=== PATIENT | female | born 1935 | race Caucasian/White ===

== ENCOUNTER 2017-04-05 12:40 | Inpatient (IN) | payer MEDICARE, MEDICAID ==
[~2017-04-05] VITALS: Ht 154.9 cm; Wt 61.2 kg
[2017-04-05] MEDS ORDERED: METO25TA6 PO (13:04)
[2017-04-05] MEDS ORDERED: RIVA20TA PO (13:04)
[2017-04-05] MEDS ORDERED: MULT1CAP PO (13:04)
[2017-04-05] MEDS ORDERED: QUET25TA34 PO (13:04)
[2017-04-05 13:54] LABS: CARBON DIOXIDE 28 mmol/L (21-32); CHLORIDE 99 mmol/L (98-107); CREATININE 0.8 mg/dL (0.6-1.3); GLUCOSE 113 mg/dL (74-106); POTASSIUM 3.9 mmol/L (3.5-5.1); UREA NITROGEN, BLOOD 19 mg/dL (7-18)
[2017-04-05 13:57] LABS: BASOPHILS # (AUTO) 0.1 K/uL (0.0-8.0); BASOPHILS % (AUTO) 1.5 % (0.0-2.0); EOSINOPHILS # (AUTO) 0.4 K/uL (0.0-0.7); EOSINOPHILS % (AUTO) 5.4 % (0.0-7.0); HEMATOCRIT 40.9 % (31.2-41.9); HEMOGLOBIN 13.7 g/dL (10.9-14.3); LYMPHOCYTES # (AUTO) 1.7 K/uL (20.0-40.0); LYMPHOCYTES % (AUTO) 20.4 % (20.5-51.5); MEAN CORPUSCULAR HGB CONC 34 g/dL (32.3-35.6); MEAN CORPUSCULAR VOLUME 86.6 fL (75.5-95.3); MONOCYTES # (AUTO) 0.9 K/uL (2.0-10.0); MONOCYTES % (AUTO) 11.1 % (0.0-11.0); NEUTROPHILS # (AUTO) 5.1 K/uL (1.8-8.9); NEUTROPHILS % (AUTO) 61.6 % (38.5-71.5); PLATELET COUNT (AUTO) 293 K/uL (179-408); RED BLOOD CELL COUNT(AUTO) 4.72 MIL/uL (3.63-4.92); WHITE BLOOD COUNT (AUTO) 8.3 K/uL (3.8-11.8)
[2017-04-05 14:00] LABS: ACETAMINOPHEN < 2.0 ug/mL (10-30); ALANINE AMINOTRANSFERASE 15 U/L (14-59); ALKALINE PHOSPHATASE 68 U/L (50-136); ASPARTATE AMINOTRANSFERASE 25 U/L (15-37); BILIRUBIN,DIRECT 0.1 mg/dL (0.0-0.2); BILIRUBIN,TOTAL 0.4 mg/dL (0.2-1.0); TOTAL PROTEIN, SERUM 7.5 g/dL (6.4-8.2)
[2017-04-05 14:08] LABS: ETHANOL < 3 MG/DL (0-0)
[2017-04-05 14:11] LABS: *BILIRUBIN,URIN NEGATIVE (NEGATIVE); *BLOOD, URINE Trace-intact (NEGATIVE); *CLARITY,URINE CLOUDY (CLEAR); *COLOR,URINE YELLOW (YELLOW); *KETONES,URINE NEGATIVE (NEGATIVE); *PROTEIN,URINE NEGATIVE (NEGATIVE); *UROBILINOGEN,URINE 0.2 E.U./dl (NORMAL); LEUKOCYTE ESTERASE ,URINE 3+ (NEGATIVE); NITRITE, URINE POSITIVE (NEGATIVE); UGLUCOSE NEGATIVE (NEGATIVE)
[2017-04-05 14:23] LABS: BACTERIA,URINE MANY /HPF (NONE SEEN); SQUAMOUS EPITHELIAL CELL,UR FEW /HPF (NONE SEEN); WBC,URINE TNTC /HPF (0-3)
[2017-04-05 14:59] LABS: *AMPHETAMINE, URINE NEGATIVE (NEGATIVE); *BARBITURATE, URINE NEGATIVE (NEGATIVE); *CANNABINOID, URINE NEGATIVE (NEGATIVE); *COCCAINE, URINE NEGATIVE (NEGATIVE); *OPIATE, URINE NEGATIVE (NEGATIVE); *PHENCYCLIDINE SCREEN,URINE NEGATIVE (NEGATIVE)
--- NOTE | 2017-04-05 15:00 | NUR ---
Patient yelling. Confused. Dr Arroyo aware
[2017-04-05] MEDS ORDERED: ALPRAZOLAM 0.25 MG TABLET PO ONE (15:03)
[2017-04-05] MEDS ORDERED: CEFTRIAXONE 1 G in IV DEXTROSE 5% 50 ML IV ONE (15:11)
--- NOTE | 2017-04-05 15:14 | NUR ---
[facility] Waiting for Dr Ochoa to call back
[2017-04-05] MEDS ORDERED: ACETAMINOPHEN 650 MG/20.3 ML LIQUID UDC PO ONE (15:15)
[2017-04-05] MEDS ORDERED: ALPRAZOLAM 0.25 MG TABLET ONE (15:22)
[2017-04-05] MEDS ORDERED: ACETAMINOPHEN 325 MG TABLET PO PRN (15:30)
[2017-04-05] MEDS ORDERED: ONDANSETRON 4 MG/2 ML VIAL IV PRN (15:30)
[2017-04-05] MEDS ORDERED: IV NORMAL SALINE 500 ML IV ONE (15:30)
[2017-04-05] MEDS ORDERED: Z GUARD REMEDY PASTE 57 GM TUBE TOP PRN (15:30)
[2017-04-05] MEDS ORDERED: QUETIAPINE FUMARATE 25 MG TABLET PO SCH (15:30)
[2017-04-05] MEDS ORDERED: MAGNESIUM HYDROXIDE 30 ML LIQUID UDC PO PRN (15:30)
[2017-04-05] MEDS ORDERED: CEFTRIAXONE 1 G VIAL ONE (15:38)
[2017-04-05] MEDS ORDERED: ACETAMINOPHEN ES 500 MG TABLET ONE (15:38)
--- NOTE | 2017-04-05 15:48 | NUR ---
Patient yelling and confused. Dr Arroyo aware. Recieved orders and carried out
--- NOTE | 2017-04-05 15:56 | NUR ---
transfered to 2nd floor via radha
[2017-04-05] MEDS ORDERED: LORAZEPAM 2 MG/1 ML VIAL IV ONE (16:00)
[2017-04-05] MEDS ORDERED: LORAZEPAM 2 MG/1 ML VIAL ONE (16:08)
[2017-04-05 16:20] VITALS: BP 102/65
--- NOTE | 2017-04-05 16:41 | NUR ---
81 year old female admitted to room 215 foe urosepsis ,pt is axo to her self.orient the pt to room and surroundings.v/s are stable.md called for admission orders.
[2017-04-05] MEDS: IV 1/2NS 1000 ML 1,000 ML IV PRN (17:02)
[2017-04-05] MEDS: RIVAROXABAN 10 MG TABLET PO SCH (17:21)
[2017-04-05 19:20] VITALS: BP 108/61
--- NOTE | 2017-04-05 19:50 | NUR ---
PATIENT AWAKE ON BED, PALESTINIAN SPEAKING . PATIENT ALERT TO SELF. NO SOB OR ANY DISCOMFORT. SAFETY MEASURES OBSERVED.
[2017-04-05] MEDS: METOPROLOL TARTRATE 25 MG TABLET PO SCH (21:12)
[2017-04-05] MEDS: QUETIAPINE FUMARATE 25 MG TABLET PO PRN (21:13)
[2017-04-06 00:15] VITALS: BP 112/62
[2017-04-06 04:20] VITALS: BP 111/58
--- NOTE | 2017-04-06 06:00 | NUR ---
PATIENT SLEPT INTERMITTENTLY THROUGH OUT THE NIGHT . NO DISTRESS NOTED. CONTINUING ON IV FLUID AND ATB ORDERED. ALL NEEDS MET. DEPT CLEAN AND DRY. SAFETY MEASURES OBSERVED. CALL LIGHT IN REACH
[2017-04-06] MEDS: IV 1/2NS 1000 ML 1,000 ML IV PRN ×2 (06:49→23:14)
[2017-04-06 07:07] LABS: BASOPHILS # (AUTO) 0.1 K/uL (0.0-8.0); BASOPHILS % (AUTO) 1.4 % (0.0-2.0); EOSINOPHILS # (AUTO) 0.6 K/uL (0.0-0.7); EOSINOPHILS % (AUTO) 9.2 % (0.0-7.0); HEMOGLOBIN 12.1 g/dL (10.9-14.3); LYMPHOCYTES # (AUTO) 2.1 K/uL (20.0-40.0); LYMPHOCYTES % (AUTO) 31.1 % (20.5-51.5); MEAN CORPUSCULAR HEMOGLOBIN 28.7 uug (24.7-32.8); MEAN CORPUSCULAR HGB CONC 33 g/dL (32.3-35.6); MEAN CORPUSCULAR VOLUME 87.2 fL (75.5-95.3); MONOCYTES # (AUTO) 0.9 K/uL (2.0-10.0); MONOCYTES % (AUTO) 13.4 % (0.0-11.0); NEUTROPHILS # (AUTO) 3.1 K/uL (1.8-8.9); NEUTROPHILS % (AUTO) 44.9 % (38.5-71.5); PLATELET COUNT (AUTO) 262 K/uL (179-408); RED BLOOD CELL COUNT(AUTO) 4.22 MIL/uL (3.63-4.92); WHITE BLOOD COUNT (AUTO) 6.8 K/uL (3.8-11.8)
[2017-04-06 07:19] LABS: HEMATOCRIT 36.8 % (31.2-41.9)
[2017-04-06 07:30] LABS: CARBON DIOXIDE 26 mmol/L (21-32); CHLORIDE 100 mmol/L (98-107); CREATININE 0.7 mg/dL (0.6-1.3); GLUCOSE 91 mg/dL (74-106); MAGNESIUM 1.6 mg/dL (1.8-2.4); PHOSPHOROUS 3.1 mg/dL (2.5-4.9); POTASSIUM 3.6 mmol/L (3.5-5.1); UREA NITROGEN, BLOOD 15 mg/dL (7-18)
[2017-04-06] MEDS: METOPROLOL TARTRATE 25 MG TABLET PO SCH ×2 (08:13→21:00)
[2017-04-06] MEDS: MULTIVIT, IRON, MIN NO. 8, FA TABLET PO SCH (08:13)
[2017-04-06] MEDS ORDERED: [UNRECOGNIZED DRUG - REMARK] PO SCH (09:00)
[2017-04-06 11:49] VITALS: BP 115/58
[2017-04-06] MEDS: HYDROCODONE/APAP 5-325MG TABLET PO PRN ×3 (14:54→20:59)
[2017-04-06] MEDS: CEFTRIAXONE 1 G in IV DEXTROSE 5% 50 ML IV SCH (14:57)
[2017-04-06] MEDS: MAGNESIUM SULFATE/D5W 100 ML IV SCH ×2 (14:59→16:24)
[2017-04-06 16:08] VITALS: BP 116/74
[2017-04-06] MEDS: QUETIAPINE FUMARATE 25 MG TABLET PO PRN ×2 (16:50→22:24)
[2017-04-06] MEDS: RIVAROXABAN 10 MG TABLET PO SCH (17:14)
[2017-04-06 19:15] VITALS: BP 109/69
--- NOTE | 2017-04-06 20:00 | NUR ---
PATIENT AWAKE, CONFUSED, RESTLESS,NSR ON MONITOR, BP ON LOW SITE,HELD METOPROLOL.
--- NOTE | 2017-04-06 22:30 | NUR ---
SEROQUEL 12.5 MG PO ADMIN FOR AGITATION,
[2017-04-07 00:07] VITALS: BP 102/56
[2017-04-07] MEDS: LORAZEPAM 2 MG/1 ML VIAL IV PRN ×2 (00:52→17:26)
--- NOTE | 2017-04-07 00:55 | NUR ---
PATIENT VERY AGITATED CONFUSED, HALLUCINATED,HEARING VOICE,ATIVAN 0.5 MG IV ADMIN.SAFETY PRECAUTIONS,BED ALARM ON, CLOSELY MONITOR.
[2017-04-07] MEDS ORDERED: LORAZEPAM 2 MG/1 ML VIAL ONE (00:58)
[2017-04-07 05:00] VITALS: BP 128/71
--- NOTE | 2017-04-07 06:08 | NUR ---
PATIENT SLEEP INTERMITTENTLY AFTER ATIVAN GIVEN,NO ACUTE DISTRESS.
[2017-04-07 07:43] LABS: CARBON DIOXIDE 28 mmol/L (21-32); CHLORIDE 102 mmol/L (98-107); CREATININE 0.6 mg/dL (0.6-1.3); GLUCOSE 94 mg/dL (74-106); MAGNESIUM 1.9 mg/dL (1.8-2.4); POTASSIUM 3.7 mmol/L (3.5-5.1); UREA NITROGEN, BLOOD 11 mg/dL (7-18)
[2017-04-07] MEDS: METOPROLOL TARTRATE 25 MG TABLET PO SCH ×2 (08:22→20:47)
[2017-04-07] MEDS: MULTIVIT, IRON, MIN NO. 8, FA TABLET PO SCH (08:22)
[2017-04-07 11:33] VITALS: BP 116/67
[2017-04-07] MEDS: QUETIAPINE FUMARATE 25 MG TABLET PO PRN ×2 (11:54→22:08)
[2017-04-07] MEDS: CEFTRIAXONE 1 G in IV DEXTROSE 5% 50 ML IV SCH (14:01)
[2017-04-07 15:01] VITALS: BP 126/74
[2017-04-07] MEDS: RIVAROXABAN 10 MG TABLET PO SCH (17:38)
--- NOTE | 2017-04-07 19:30 | NUR ---
Pt in room in no acute distress. Continues to speak in Ethiopian language. Able to follow simple commands. Call light placed within reach. No pain stated. Continue to monitor.
[2017-04-08] MEDS: LORAZEPAM 2 MG/1 ML VIAL IV PRN ×2 (00:22→12:25)
--- NOTE | 2017-04-08 01:00 | NUR ---
Pt asleep and calm due to recent Ativan. No increased agitation or anxious behaviors noted at this time. Continue to monitor. Call light placed within reach.
[2017-04-08] MEDS: IV 1/2NS 1000 ML 1,000 ML IV PRN (05:34)
[2017-04-08] MEDS: MULTIVIT, IRON, MIN NO. 8, FA TABLET PO SCH (09:21)
[2017-04-08] MEDS: METOPROLOL TARTRATE 25 MG TABLET PO SCH ×2 (09:24→20:00)
[2017-04-08] MEDS: HYDROCODONE/APAP 5-325MG TABLET PO PRN ×2 (09:25→20:04)
--- NOTE | 2017-04-08 09:30 | NUR ---
COMPLAINED OF GENERALISED PAIN FACIAL GRIMACING AND RUBBING BOTH LEGS ARMS MEDICATED ORDERED AND WILL OBSERVE.
[2017-04-08] MEDS ORDERED: LEVO500T2 PO (10:13)
[2017-04-08 11:00] VITALS: BP 112/72
--- NOTE | 2017-04-08 11:19 | NUR ---
PATIENT SEEN BY PHYSICAL THERAPY FOR THERAPEUTIC EXERCISES AND SHE GAITED ABOUT 50 FEET WITH MIN-MOD ASSIST WITH FAIR ENDURANCE.D/C PLANNING AWAITING FOR DOG HANDLER BAKERY TECHNICIAN TO OKAY HER FINAL DISPOSITION.
[2017-04-08] MEDS: QUETIAPINE FUMARATE 25 MG TABLET PO PRN ×2 (13:19→19:59)
[2017-04-08 15:30] VITALS: BP 104/62
--- NOTE | 2017-04-08 15:42 | NUR ---
PER THE SHIFT SUPERVISOR FILM PROCESSING STILL TRYING TO FINALISE WHICH SNF THAT WILL ACCEPT PATIENT.
[2017-04-08] MEDS: CEFTRIAXONE 1 G in IV DEXTROSE 5% 50 ML IV SCH (15:58)
--- NOTE | 2017-04-08 17:25 | NUR ---
THIS RECORDER SPOKE WITH KATRIN TL SON COMFORT CHANG, INFORMED HIM OF HIS MOTHER'S DISCHARGE AND AMBULANCE ARRIVAL TIME OF APPROXIMATELY 2100 THIS EVENING.
--- NOTE | 2017-04-08 18:13 | NUR ---
SEEN BY DR MOSES WITH ORDER TO DISCONTINUE TELEMETRY THE SALES AND OPERATIONS TRAINEE STATED THAT SHE SPOKE WITH PATIENTS SON COMFORT AND HE STATED THAT IT WAS OKAY TO DISCHARGE PATIENT TODAY TO [facility].
[2017-04-08] MEDS: RIVAROXABAN 10 MG TABLET PO SCH (18:18)
[2017-04-08 20:00] VITALS: BP 133/75
--- NOTE | 2017-04-08 21:00 | NUR ---
patient discharged to [facility] via ambulance, report given to Ashu TORRES. patient took all belongings.hep lock d/c.
== END 2017-04-08 21:23 | DRG 689 ==
LOC: ER 12:40 → TELE 15:45 → MED 04-08 18:03
PROVIDERS: ADMIT Internal Medicine; ATTEND Internal Medicine
DX: N39.0 Urinary tract infection, site not specified (principal); G92 Toxic encephalopathy; N17.0 Acute kidney failure with tubular necrosis; E43 Unspecified severe protein-calorie malnutrition; G30.9 Alzheimer's disease, unspecified; I48.0 Paroxysmal atrial fibrillation; E88.09 Other disorders of plasma-protein metabolism, not elsewhere classified; F02.80 Dementia in other diseases classified elsewhere, unspecified severity, without behavioral disturbance, psychotic disturbance, mood disturbance, and anxiety; E78.5 Hyperlipidemia, unspecified; F29 Unspecified psychosis not due to a substance or known physiological condition; F32.9 Major depressive disorder, single episode, unspecified; F41.9 Anxiety disorder, unspecified; M62.50 Muscle wasting and atrophy, not elsewhere classified, unspecified site; Z68.25 Body mass index [BMI] 25.0-25.9, adult
CPT/HCPCS: 36415; 71010; 80307; 83735; 84100; 85025; 93005; A4663; C1758; G0480; G0480-TC; J0696; J2060; J3475; J3490; J7030; J7060

== ENCOUNTER 2017-04-26 11:18 | Inpatient (IN) | payer MEDICARE, MEDICAID ==
[~2017-04-26] VITALS: Ht 160 cm; Wt 63.5 kg
[~2017-04-26 11:18] MED LIST: LEVO500T2 PO; METO25TA6 PO; MULT1CAP PO; QUET25TA34 PO; RIVA20TA PO
--- NOTE | 2017-04-26 11:22 | NUR ---
Received patient awake, confuse, respiration:easy, afebrile, with occasional nonproductive cough heard. Patient also repeatedly says "Mama, mama, mama, mama." [place], skin warm and dry.
[2017-04-26] MEDS ORDERED: PROT946L PO (11:27)
[2017-04-26] MEDS ORDERED: ROBITUSSIN DM PO (11:27)
--- NOTE | 2017-04-26 11:30 | NUR ---
Brynn-anal care done, pt had one big BM of brown stool, no pressure sores seen, comfort and safety measures maintained.
[2017-04-26] MEDS ORDERED: PIPERACILLIN SODIUM/TAZOBACTAM 3.375 G in IV DEXTROSE 5% 50 ML IV ONE (11:45)
[2017-04-26] MEDS ORDERED: LORAZEPAM 2 MG/1 ML VIAL IV ONE (11:45)
[2017-04-26] MEDS ORDERED: IV NORMAL SALINE 1000 ML BAG IV ONE (11:45)
[2017-04-26] MEDS ORDERED: LEVOFLOXACIN 750MG/D5W 150 ML IV ONE ×2 (11:45→12:18)
[2017-04-26] MEDS ORDERED: diphenhydrAMINE 50 MG/1 ML VIAL IV ONE (11:45)
[2017-04-26 12:07] LABS: BASOPHILS # (AUTO) 0.1 K/uL (0.0-8.0); BASOPHILS % (AUTO) 0.4 % (0.0-2.0); EOSINOPHILS # (AUTO) 0.1 K/uL (0.0-0.7); EOSINOPHILS % (AUTO) 0.7 % (0.0-7.0); HEMOGLOBIN 13.1 g/dL (10.9-14.3); LYMPHOCYTES % (AUTO) 22.4 % (20.5-51.5); MEAN CORPUSCULAR HEMOGLOBIN 28.3 uug (24.7-32.8); MEAN CORPUSCULAR HGB CONC 34 g/dL (32.3-35.6); MEAN CORPUSCULAR VOLUME 84.4 fL (75.5-95.3); MONOCYTES # (AUTO) 1.6 K/uL (2.0-10.0); MONOCYTES % (AUTO) 9.1 % (0.0-11.0); NEUTROPHILS % (AUTO) 67.4 % (38.5-71.5); PLATELET COUNT (AUTO) 330 K/uL (179-408); RED BLOOD CELL COUNT(AUTO) 4.62 MIL/uL (3.63-4.92); WHITE BLOOD COUNT (AUTO) 17.8 K/uL (3.8-11.8)
[2017-04-26 12:10] LABS: *BILIRUBIN,URIN NEGATIVE (NEGATIVE); *BLOOD, URINE NEGATIVE (NEGATIVE); *CLARITY,URINE CLEAR (CLEAR); *COLOR,URINE YELLOW (YELLOW); *KETONES,URINE NEGATIVE (NEGATIVE); *PROTEIN,URINE NEGATIVE (NEGATIVE); *UROBILINOGEN,URINE 0.2 E.U./dl (NORMAL); LEUKOCYTE ESTERASE ,URINE NEGATIVE (NEGATIVE); NITRITE, URINE NEGATIVE (NEGATIVE); UGLUCOSE NEGATIVE (NEGATIVE)
[2017-04-26 12:12] LABS: CARBON DIOXIDE 22 mmol/L (21-32); CHLORIDE 97 mmol/L (98-107); CREATININE 0.9 mg/dL (0.6-1.3); GLUCOSE 115 mg/dL (74-106); POTASSIUM 3.8 mmol/L (3.5-5.1); UREA NITROGEN, BLOOD 20 mg/dL (7-18)
[2017-04-26 12:16] LABS: BACTERIA,URINE NONE SEEN /HPF (NONE SEEN); MUCUS,URINE FEW /LPF (0-FEW); RBC,URINE 0-3 /HPF (0-3); SQUAMOUS EPITHELIAL CELL,UR FEW /HPF (NONE SEEN); WBC,URINE 0-3 /HPF (0-3)
[2017-04-26 12:17] LABS: ALANINE AMINOTRANSFERASE 15 U/L (14-59); ALKALINE PHOSPHATASE 77 U/L (50-136); ASPARTATE AMINOTRANSFERASE 19 U/L (15-37); BILIRUBIN,DIRECT 0.1 mg/dL (0.0-0.2); BILIRUBIN,TOTAL 0.4 mg/dL (0.2-1.0)
[2017-04-26] MEDS ORDERED: LORAZEPAM 2 MG/1 ML VIAL ONE (12:17)
[2017-04-26] MEDS ORDERED: diphenhydrAMINE 50 MG/1 ML VIAL ONE (12:18)
[2017-04-26 12:26] LABS: BAND % (MANUAL) 3 % (0-10); LYMPHOCYTES % (MANUAL) 23 % (20-40); METAMYELOCYTES % 1 % (0-1); MONOCYTES % (MANUAL) 9 % (2-10); NEUTROPHILS % (MANUAL) 64 % (42-75)
--- NOTE | 2017-04-26 12:40 | NUR ---
Patient is resting comfortably on gurney, occasional random screams heard from the patient while her eyes are closed, respiration:easy.
[2017-04-26] MEDS ORDERED: PIPERACILLIN/TAZOBACTAM/D5W 50 ML IV ONE (12:51)
--- NOTE | 2017-04-26 13:31 | NUR ---
Still waiting for an available telemetry nurse to accept patient at this time, no change in condition seen
--- NOTE | 2017-04-26 14:01 | NUR ---
"OK to bring the patient now. " per 2nd floor nurse
[2017-04-26 14:51] VITALS: BP 109/62
[2017-04-26 19:00] VITALS: BP 111/65
[2017-04-26] MEDS ORDERED: MAGNESIUM HYDROXIDE 30 ML LIQUID UDC PO PRN (19:30)
[2017-04-26] MEDS ORDERED: ONDANSETRON 4 MG/2 ML VIAL IV PRN (19:30)
[2017-04-26] MEDS ORDERED: ALBUTEROL SULFATE 2.5 MG/3 ML NEBU NEB PRN (19:30)
[2017-04-26] MEDS ORDERED: MORPHINE SULFATE 2 MG/1 ML DISP.SYRIN IV PRN (19:30)
--- NOTE | 2017-04-26 19:30 | NUR ---
RECEIVED PATIENT IN BED AWAKE, VERBALLY RESPONSIVE, NO CHEST PAIN NO SOB NOTED, RHYTHM SINUS RHYTHM AT THIS TIME, SPEAK SUDANESE BUT ABLE TO UNDERSTAND GERMAN. COMPLAIN GEN DISCOMFORT, WILL GIVE PAIN MEDS ORDERED. CONT TO MONITOR.
--- NOTE | 2017-04-26 19:50 | NUR ---
CLINICAL PHARMACY NOTE:VANCOMYCIN DOSING Request for vancomycin dosing on 81 y/o female 5'3" 140lbs for pneumonia Temp 98.6 BUN 20 Scr 0.9 WBC 17.8 Bands 3 also on Zosyn start vancomycin 1gm ivpb q27 hours estimated trough 15. Trough level will be ordered prior to 4th dose. Will continue to monitor
[2017-04-26] MEDS: QUETIAPINE FUMARATE 25 MG TABLET PO PRN (19:56)
[2017-04-26] MEDS ORDERED: DOCUSATE SODIUM 250 MG CAPSULE PO SCH (21:00)
[2017-04-26] MEDS: DOCUSATE SODIUM 100 MG CAPSULE PO SCH (21:00)
[2017-04-26] MEDS: VANCOMYCIN IV 1 G in PREMIXED 0 EACH IV SCH (21:04)
[2017-04-26] MEDS: ACETAMINOPHEN 325 MG TABLET PO PRN (21:08)
[2017-04-26] MEDS: PIPERACILLIN/TAZOBACTAM/D5W 3.375 G in PREMIXED 1 EACH IV SCH (23:10)
[2017-04-27] VITALS: BP 104/58
[2017-04-27 04:00] VITALS: BP 122/70
[2017-04-27] MEDS: PIPERACILLIN/TAZOBACTAM/D5W 3.375 G in PREMIXED 1 EACH IV SCH ×3 (05:45→21:14)
[2017-04-27] MEDS: PANTOPRAZOLE SODIUM 40 MG TABLET.DR PO SCH (05:55)
[2017-04-27 06:38] LABS: BASOPHILS % (AUTO) 0.4 % (0.0-2.0); EOSINOPHILS # (AUTO) 0.1 K/uL (0.0-0.7); EOSINOPHILS % (AUTO) 1.6 % (0.0-7.0); HEMATOCRIT 34.8 % (31.2-41.9); HEMOGLOBIN 11.6 g/dL (10.9-14.3); LYMPHOCYTES # (AUTO) 1.7 K/uL (20.0-40.0); LYMPHOCYTES % (AUTO) 19.7 % (20.5-51.5); MEAN CORPUSCULAR HEMOGLOBIN 28.3 uug (24.7-32.8); MEAN CORPUSCULAR HGB CONC 33 g/dL (32.3-35.6); MEAN CORPUSCULAR VOLUME 85.2 fL (75.5-95.3); MONOCYTES # (AUTO) 1.3 K/uL (2.0-10.0); MONOCYTES % (AUTO) 14.6 % (0.0-11.0); NEUTROPHILS # (AUTO) 5.5 K/uL (1.8-8.9); NEUTROPHILS % (AUTO) 63.7 % (38.5-71.5); PLATELET COUNT (AUTO) 231 K/uL (179-408); RED BLOOD CELL COUNT(AUTO) 4.09 MIL/uL (3.63-4.92); WHITE BLOOD COUNT (AUTO) 8.6 K/uL (3.8-11.8)
[2017-04-27 06:50] LABS: ALANINE AMINOTRANSFERASE 10 U/L (14-59); ALKALINE PHOSPHATASE 61 U/L (50-136); ASPARTATE AMINOTRANSFERASE 20 U/L (15-37); BILIRUBIN,TOTAL 0.4 mg/dL (0.2-1.0); CARBON DIOXIDE 26 mmol/L (21-32); CHLORIDE 101 mmol/L (98-107); CHOLESTEROL 142 mg/dL (<200); CREATININE 0.7 mg/dL (0.6-1.3); GLUCOSE 99 mg/dL (74-106); HDL CHOLESTEROL 46 mg/dL (40-60); MAGNESIUM 1.4 mg/dL (1.8-2.4); PHOSPHOROUS 2.5 mg/dL (2.5-4.9); POTASSIUM 3.3 mmol/L (3.5-5.1); TOTAL PROTEIN, SERUM 5.8 g/dL (6.4-8.2); TRIGLYCERIDES 94 MG/DL (30-150); UREA NITROGEN, BLOOD 14 mg/dL (7-18)
[2017-04-27 07:03] LABS: THYROID STIMULATING HORMONE 4.444 mIU/mL (0.358-3.740)
--- NOTE | 2017-04-27 07:31 | NUR ---
PATIENT SLEPT MOST OF THE NIGHT NO SOB NO CHEST PAIN, SINUS RHYTHM AT THIS TIME, HELD COLACE DUE TO LBM, BM SPECIMEN WAS SENT. NO COMPLAIN OF PAIN AT THIS TIME, KEPT CLEAN AND DRY.
--- NOTE | 2017-04-27 07:45 | NUR ---
PT AWAKE IN BED AND NO ACUTE DISTRESS. BED ALARM ON. IV INTACT AND PATENT. CALL LIGHT IN REACH. WILL CONTINUE TO MONITOR.
[2017-04-27] MEDS ORDERED: Medication Not On Formulary EA (Protein Supplement (Promod) 30 ML) PO SCH (09:00)
[2017-04-27] MEDS: ACETAMINOPHEN 325 MG TABLET PO PRN ×2 (09:18→18:27)
[2017-04-27] MEDS: PROTEIN SUPPLEMENT (PROSTAT) 30 ML LIQUID PO SCH ×3 (09:19→17:19)
[2017-04-27 11:11] VITALS: BP 119/68
[2017-04-27] MEDS ORDERED: POTASSIUM CHLORIDE 20 MEQ TAB.PRT.SR PO ONE (11:15)
[2017-04-27] MEDS: MAGNESIUM SULFATE/D5W 100 ML IV SCH ×3 (11:38→17:23)
--- NOTE | 2017-04-27 14:14 | NUR ---
CLINICAL PHARMACY NOTE:VANCOMYCIN DOSING To continue vancomycin dosing on 81 y/o female 5'3" 140lbs for pneumonia Temp 97.7 BUN 14 Scr 0.7 WBC 8.6 Will continue vancomycin 1gm ivpb q27 hours estimated trough 15. Trough level will be ordered prior to 4th dose. Will continue to monitor
[2017-04-27 15:44] VITALS: BP 134/68
[2017-04-27] MEDS: QUETIAPINE FUMARATE 25 MG TABLET PO PRN (16:28)
[2017-04-27] MEDS: RIVAROXABAN 10 MG TABLET PO SCH (17:21)
[2017-04-27] MEDS: LORAZEPAM 0.5 MG TABLET PO PRN (18:42)
--- NOTE | 2017-04-27 18:51 | NUR ---
PT AWAKE IN BED, CONTINUALLY YELLING OUT WANTS TO BE CHANGE, DIAPER WAS CHECKED AND WAS DRY. CALLED FAMILY MEMBER TO ASSIST IN CALMING THE PATIENT DOWN. PT. MADE COMFORTABLE. CONTINUES TO YELL OUT, ATIVAN GIVEN ORDERED.
[2017-04-27 20:00] VITALS: BP 140/77
[2017-04-27] MEDS: DOCUSATE SODIUM 100 MG CAPSULE PO SCH (21:13)
[2017-04-27] MEDS: VANCOMYCIN IV 1 G in PREMIXED 0 EACH IV SCH (22:24)
[2017-04-28] VITALS: BP 113/68
--- NOTE | 2017-04-28 02:10 | NUR ---
pt with large amount of bloody semi liquid stool.specimen obtained and sent to lab.
[2017-04-28] MEDS: QUETIAPINE FUMARATE 25 MG TABLET PO PRN (02:30)
[2017-04-28 04:00] VITALS: BP 105/61
[2017-04-28] MEDS: PIPERACILLIN/TAZOBACTAM/D5W 3.375 G in PREMIXED 1 EACH IV SCH ×3 (06:24→21:06)
[2017-04-28 07:11] LABS: BASOPHILS % (AUTO) 0.7 % (0.0-2.0); EOSINOPHILS # (AUTO) 0.2 K/uL (0.0-0.7); EOSINOPHILS % (AUTO) 2.5 % (0.0-7.0); HEMATOCRIT 35.4 % (31.2-41.9); HEMOGLOBIN 11.5 g/dL (10.9-14.3); LYMPHOCYTES % (AUTO) 28.8 % (20.5-51.5); MEAN CORPUSCULAR HEMOGLOBIN 27.7 uug (24.7-32.8); MEAN CORPUSCULAR HGB CONC 32 g/dL (32.3-35.6); MEAN CORPUSCULAR VOLUME 85.4 fL (75.5-95.3); MONOCYTES # (AUTO) 1.1 K/uL (2.0-10.0); MONOCYTES % (AUTO) 16.1 % (0.0-11.0); NEUTROPHILS # (AUTO) 3.5 K/uL (1.8-8.9); NEUTROPHILS % (AUTO) 51.9 % (38.5-71.5); PLATELET COUNT (AUTO) 251 K/uL (179-408); RED BLOOD CELL COUNT(AUTO) 4.14 MIL/uL (3.63-4.92); WHITE BLOOD COUNT (AUTO) 6.8 K/uL (3.8-11.8)
[2017-04-28] MEDS: PANTOPRAZOLE SODIUM 40 MG TABLET.DR PO SCH (07:13)
[2017-04-28 07:26] LABS: ALANINE AMINOTRANSFERASE 15 U/L (14-59); ALKALINE PHOSPHATASE 66 U/L (50-136); ASPARTATE AMINOTRANSFERASE 22 U/L (15-37); BILIRUBIN,TOTAL 0.4 mg/dL (0.2-1.0); CARBON DIOXIDE 26 mmol/L (21-32); CHLORIDE 102 mmol/L (98-107); CREATININE 0.7 mg/dL (0.6-1.3); GLUCOSE 95 mg/dL (74-106); MAGNESIUM 1.9 mg/dL (1.8-2.4); PHOSPHOROUS 2.4 mg/dL (2.5-4.9); POTASSIUM 3.4 mmol/L (3.5-5.1); TOTAL PROTEIN, SERUM 5.8 g/dL (6.4-8.2); UREA NITROGEN, BLOOD 13 mg/dL (7-18)
[2017-04-28 08:00] VITALS: BP 96/61
[2017-04-28 08:14] LABS: BAND % (MANUAL) 7 % (0-10); EOSINOPHILS % (MANUAL) 3 % (0-8); LYMPHOCYTES % (MANUAL) 26 % (20-40); METAMYELOCYTES % 1 % (0-1); MONOCYTES % (MANUAL) 14 % (2-10); NEUTROPHILS % (MANUAL) 49 % (42-75)
[2017-04-28] MEDS: PROTEIN SUPPLEMENT (PROSTAT) 30 ML LIQUID PO SCH ×3 (08:26→17:38)
[2017-04-28 08:30] LABS: *OCCULT BLOOD STOOL POSITIVE (NEGATIVE)
[2017-04-28] MEDS: POTASSIUM PHOSPHATE MM 5 MMOL in IV DEXTROSE 5% 100 ML IV SCH ×2 (11:35→15:21)
[2017-04-28 11:42] VITALS: BP 109/69
--- NOTE | 2017-04-28 14:39 | NUR ---
CLINICAL PHARMACY NOTE:VANCOMYCIN DOSING To continue vancomycin dosing on 81 y/o female 5'3" 140lbs for pneumonia Temp 98 BUN 13 Scr 0.7 WBC 6.8 Will continue vancomycin 1gm ivpb q27 hours estimated trough 15. Trough level will be ordered prior to 4th dose, not ordered yet. 3rd dose scheduled for tomorrow early am at 0200. Will continue to monitor
[2017-04-28 16:10] VITALS: BP 118/73
[2017-04-28] MEDS: RIVAROXABAN 10 MG TABLET PO SCH (18:07)
[2017-04-28 19:00] VITALS: BP 107/67
--- NOTE | 2017-04-28 19:00 | NUR ---
Received patient, is awake and alert during initial rounds. No s/s of pain or discomfort noted. Not in distress. Will anticipate needs.
--- NOTE | 2017-04-28 19:06 | NUR ---
PT OBSERVED IN BED, THERE IS A LANGUAGE BARRIER, BUT SON CAME AND TRANSLATED FOR ME, SON STATES THAT MOTHER C/O ABDOMINAL PAIN, SHE REFUSED MEDICATION, AND CT SCAN WAS ORDERED BY MD. PT IS STABLE.
[2017-04-28] MEDS: DOCUSATE SODIUM 100 MG CAPSULE PO SCH (20:50)
[2017-04-28] MEDS: LACTOBACILLUS RHAMNOSUS GG 1 EACH CAPSULE PO SCH (20:50)
[2017-04-29] MEDS: VANCOMYCIN IV 1 G in PREMIXED 0 EACH IV SCH (02:48)
[2017-04-29 04:00] VITALS: BP 107/63
[2017-04-29] MEDS: PIPERACILLIN/TAZOBACTAM/D5W 3.375 G in PREMIXED 1 EACH IV SCH ×2 (05:17→15:05)
[2017-04-29] MEDS: PANTOPRAZOLE SODIUM 40 MG TABLET.DR PO SCH (05:53)
[2017-04-29] MEDS: MORPHINE SULFATE 4 MG/1 ML DISP.SYRIN IV PRN ×2 (06:25→19:51)
--- NOTE | 2017-04-29 06:26 | NUR ---
VS stable. Slept in between care. Medicated once for complaint of facial pain with relief. No further complaint presented after. All needs attended and met. No significant event reported all night. Continue current plan of care.
[2017-04-29 08:00] VITALS: BP 112/62
[2017-04-29] MEDS: LACTOBACILLUS RHAMNOSUS GG 1 EACH CAPSULE PO SCH ×2 (09:00→20:12)
[2017-04-29] MEDS: PROTEIN SUPPLEMENT (PROSTAT) 30 ML LIQUID PO SCH ×3 (10:37→17:00)
[2017-04-29 11:33] VITALS: BP 109/63
[2017-04-29] MEDS ORDERED: BARIUM SULFATE 450 ML ORAL.SUSP MC ONE (13:43)
[2017-04-29] MEDS: LORAZEPAM 0.5 MG TABLET PO PRN (15:40)
[2017-04-29] MEDS: VANCOMYCIN FOR PO/GT/NG USE PO SCH ×2 (15:40→19:09)
--- NOTE | 2017-04-29 15:59 | NUR ---
CLINICAL PHARMACY NOTE:VANCOMYCIN DOSING To continue vancomycin dosing on 81 y/o female 5'3" 140lbs for pneumonia Temp 97.5 BUN 13 Scr 0.7 WBC 6.8 Will continue vancomycin 1gm ivpb q27 hours estimated trough 15. Trough due tomorrow am at 0430, RN to hold if trouhg >20. Will check trough in am and adjust as needed. Will continue to monitor
[2017-04-29 16:13] VITALS: BP 119/68
[2017-04-29] MEDS ORDERED: NORMAL SALINE FLUSH 10 ML DISP.SYRIN ONE (16:54)
[2017-04-29] MEDS ORDERED: IOHEXOL 300MG/ML 100 ML INFUS..BTL ONE (16:54)
[2017-04-29] MEDS ORDERED: IV NORMAL SALINE 250 ML IV ONE (16:55)
[2017-04-29 19:00] VITALS: BP 148/82
[2017-04-29] MEDS: RIVAROXABAN 10 MG TABLET PO SCH (19:10)
[2017-04-29] MEDS: DOCUSATE SODIUM 100 MG CAPSULE PO SCH (20:12)
[2017-04-30] MEDS: VANCOMYCIN FOR PO/GT/NG USE PO SCH ×4 (00:10→17:00)
[2017-04-30] MEDS: QUETIAPINE FUMARATE 25 MG TABLET PO PRN ×3 (02:12→20:28)
[2017-04-30 04:00] VITALS: BP 111/66
[2017-04-30 05:40] LABS: BASOPHILS # (AUTO) 0.1 K/uL (0.0-8.0); BASOPHILS % (AUTO) 0.8 % (0.0-2.0); EOSINOPHILS # (AUTO) 0.3 K/uL (0.0-0.7); EOSINOPHILS % (AUTO) 3.7 % (0.0-7.0); HEMATOCRIT 36.7 % (31.2-41.9); HEMOGLOBIN 11.8 g/dL (10.9-14.3); LYMPHOCYTES # (AUTO) 2.3 K/uL (20.0-40.0); LYMPHOCYTES % (AUTO) 30.3 % (20.5-51.5); MEAN CORPUSCULAR HEMOGLOBIN 27.7 uug (24.7-32.8); MEAN CORPUSCULAR HGB CONC 32 g/dL (32.3-35.6); MEAN CORPUSCULAR VOLUME 85.8 fL (75.5-95.3); MONOCYTES # (AUTO) 1.1 K/uL (2.0-10.0); MONOCYTES % (AUTO) 14.4 % (0.0-11.0); NEUTROPHILS # (AUTO) 3.9 K/uL (1.8-8.9); NEUTROPHILS % (AUTO) 50.8 % (38.5-71.5); PLATELET COUNT (AUTO) 288 K/uL (179-408); RED BLOOD CELL COUNT(AUTO) 4.28 MIL/uL (3.63-4.92); WHITE BLOOD COUNT (AUTO) 7.7 K/uL (3.8-11.8)
[2017-04-30 05:56] LABS: ALANINE AMINOTRANSFERASE 23 U/L (14-59); ALKALINE PHOSPHATASE 108 U/L (50-136); ASPARTATE AMINOTRANSFERASE 28 U/L (15-37); BILIRUBIN,TOTAL 0.2 mg/dL (0.2-1.0); CARBON DIOXIDE 29 mmol/L (21-32); CHLORIDE 102 mmol/L (98-107); CREATININE 0.7 mg/dL (0.6-1.3); GLUCOSE 91 mg/dL (74-106); MAGNESIUM 1.7 mg/dL (1.8-2.4); PHOSPHOROUS 2.2 mg/dL (2.5-4.9); POTASSIUM 3.6 mmol/L (3.5-5.1); TOTAL PROTEIN, SERUM 6.1 g/dL (6.4-8.2); UREA NITROGEN, BLOOD 10 mg/dL (7-18)
[2017-04-30] MEDS: PANTOPRAZOLE SODIUM 40 MG TABLET.DR PO SCH (06:19)
--- NOTE | 2017-04-30 06:34 | NUR ---
PT C/O GENERALIZED PAIN , PAIN MANAGEMENT PROVIDED WITH HELP.WAS GIVEN SEROQUEL FOR AGITATION.SLEPT AFTERWARDS. TURNED AND REPOSITIONED. PERICARE GIVEN. SAFETY RENDERED.
--- NOTE | 2017-04-30 07:35 | NUR ---
DR. NOYOLA CALLED IN REGARDS TO THE CT SCAN RESULTS, DR. ELDER NOTIFIED OF RESULTS.
[2017-04-30] MEDS: LACTOBACILLUS RHAMNOSUS GG 1 EACH CAPSULE PO SCH ×2 (08:18→20:27)
[2017-04-30] MEDS: PROTEIN SUPPLEMENT (PROSTAT) 30 ML LIQUID PO SCH ×3 (08:19→16:28)
[2017-04-30] MEDS: MORPHINE SULFATE 4 MG/1 ML DISP.SYRIN IV PRN (10:51)
--- NOTE | 2017-04-30 10:58 | NUR ---
PT IS SCREAMING, AND HAS FACIAL GRIMACING.WHEN ASKED ABOUT WHETHER SHE HAS PAIN SHE CAN'T SCORE THE PAIN, WHEN I ASK WHERE SHE HAS PAIN SHE STATES "EVERYWHERE". PT IS IRRITABLE, RESTLESS, CRYING, PT GIVEN MORPHINE FOR PAIN. MEDICATION EFFECTIVE.
[2017-04-30 11:41] VITALS: BP 122/72
[2017-04-30] MEDS ORDERED: Z GUARD REMEDY PASTE 57 GM TUBE TOP PRN (13:00)
[2017-04-30] MEDS ORDERED: MAGNESIUM OXIDE 400 MG TABLET PO ONE (14:45)
[2017-04-30 15:44] VITALS: BP 118/63
[2017-04-30] MEDS: RIVAROXABAN 10 MG TABLET PO SCH (17:03)
[2017-04-30] MEDS: HYDROCODONE/APAP 5-325MG TABLET PO PRN (17:26)
--- NOTE | 2017-04-30 17:27 | NUR ---
PT VERBALIZED "TOO MUCH PAIN" AND POINTS TO HER LEFT SHOULDER, SCREAMING, FACIAL GRIMACING, RESTLESSNESS, PT GIVEN A NORCO. CONTINUE TO MONITOR PT.
[2017-04-30] MEDS: LORAZEPAM 0.5 MG TABLET PO PRN ×2 (18:07→23:56)
--- NOTE | 2017-04-30 18:17 | NUR ---
PAIN MEDICATION EFFECTIVE. PT CONTINUE TO BE RESTLESS, ANXIOUS, SCREAMING, AGITATED, STATING " NO PAIN" PT OFFERED ATIVAN. CONTINUE TO MONITOR PT, ATIVAN EFFECTIVE. PT OBSERVED IN ROOM, NO SIGNS OF RESPIRATORY DISTRESS, BREATHING EQUALLY. PT IV SITE INTACT, NO SIGNS OF REDNESS OR IRRITATION.
--- NOTE | 2017-04-30 20:00 | NUR ---
RECEIVED PATIENT IN BED, SHE'S AWAKE ALERT AND ORIENTED X2, VERY CONFUSED TALKING TO SELF. DENIES PAIN, NO SIGNS OF DISTRESS OR DISCOMFORT NOTED.CALL LIGHT WITHIN PATIENT'S REACH. WILL CONTINUE TO MONITOR PATIENT
[2017-04-30] MEDS: DOCUSATE SODIUM 100 MG CAPSULE PO SCH (20:27)
[2017-04-30 20:41] VITALS: BP 130/79
[2017-04-30] MEDS ORDERED: NEUTRA PHOS PACKET PO ONE (21:00)
[2017-05-01] MEDS: VANCOMYCIN FOR PO/GT/NG USE PO SCH ×4 (00:05→18:07)
[2017-05-01 04:00] VITALS: BP 155/84
[2017-05-01] MEDS: PANTOPRAZOLE SODIUM 40 MG TABLET.DR PO SCH (06:16)
[2017-05-01] MEDS: QUETIAPINE FUMARATE 25 MG TABLET PO PRN ×3 (06:17→21:23)
--- NOTE | 2017-05-01 07:01 | NUR ---
PATIENT IS ASLEEP WITH NO SIGNS OR SYMPTOMS OF PAIN OR RESP DISTRESS. CALL LIGHT WITHIN REACH, WILL CONTINUE TO MONITOR PATIENT
--- NOTE | 2017-05-01 07:55 | NUR ---
PATIENT NOTED RESTING IN BED WITH EYES CLOSE, NO FACIAL CUES OF PAIN NOTED,NO SIGNS OF DISTRESS, CALL LIGHT IN REACH, BED LOCKED AND IN LOWEST POSITION, CONTACT ISOLATION MAINTAINED
[2017-05-01 08:15] LABS: CARBON DIOXIDE 33 mmol/L (21-32); CHLORIDE 102 mmol/L (98-107); CREATININE 0.6 mg/dL (0.6-1.3); GLUCOSE 106 mg/dL (74-106); MAGNESIUM 1.5 mg/dL (1.8-2.4); POTASSIUM 3.4 mmol/L (3.5-5.1); UREA NITROGEN, BLOOD 10 mg/dL (7-18)
[2017-05-01] MEDS: PROTEIN SUPPLEMENT (PROSTAT) 30 ML LIQUID PO SCH ×3 (08:31→17:00)
[2017-05-01] MEDS: LACTOBACILLUS RHAMNOSUS GG 1 EACH CAPSULE PO SCH ×2 (08:31→20:00)
[2017-05-01] MEDS ORDERED: MAGNESIUM SULFATE/D5W 100 ML IV SCH (11:15)
[2017-05-01] MEDS ORDERED: POTASSIUM CHLORIDE 20 MEQ TAB.PRT.SR PO ONE (11:15)
[2017-05-01 11:30] VITALS: BP 128/74
[2017-05-01] MEDS: MAGNESIUM SULFATE 1 GM in IV DEXTROSE 5% 100 ML IV SCH ×2 (11:53→13:20)
[2017-05-01] MEDS: LORAZEPAM 0.5 MG TABLET PO PRN ×2 (13:20→20:00)
[2017-05-01 15:45] VITALS: BP 119/71
[2017-05-01] MEDS ORDERED: HALOPERIDOL LACTATE 5 MG/1 ML VIAL IM PRN (17:00)
[2017-05-01] MEDS: RIVAROXABAN 10 MG TABLET PO SCH (18:08)
[2017-05-01] MEDS: HYDROCODONE/APAP 5-325MG TABLET PO PRN (18:08)
[2017-05-01 20:00] VITALS: BP 116/69
[2017-05-01] MEDS: DOCUSATE SODIUM 100 MG CAPSULE PO SCH (20:00)
--- NOTE | 2017-05-01 21:00 | NUR ---
received to care, lying in bed, appearing restless, sitter at her side, for safety. PRN ativan was given at 1999 for agitation, and, as of 2099, she remains agitated and restless. compliant with medications and staff direction. remains on contact isolation for c diff. has had 2 episodes of loose stool since 1899. will continue to monitor closely.
--- NOTE | 2017-05-01 21:23 | NUR ---
PRN seroquel given for agitation/restlessness. sitter remains at side. will continue to monitor closely.
--- NOTE | 2017-05-01 21:58 | NUR ---
appears to be asleep. no distress noted.
--- NOTE | 2017-05-01 23:25 | NUR ---
Received report from outgoing nurse, COLBY Mireles. patient sleeping during initial rounds. Sitter at bedside. Safety measures and fall precaution maintained. Will continue to monitor.
[2017-05-02] MEDS: VANCOMYCIN FOR PO/GT/NG USE PO SCH ×5 (00:23→23:47)
[2017-05-02] MEDS: HYDROCODONE/APAP 5-325MG TABLET PO PRN ×3 (03:20→23:48)
[2017-05-02 04:00] VITALS: BP 121/71
[2017-05-02] MEDS ORDERED: ACETAMINOPHEN 325 MG TABLET ONE (04:22)
[2017-05-02] MEDS: PANTOPRAZOLE SODIUM 40 MG TABLET.DR PO SCH (05:48)
--- NOTE | 2017-05-02 05:58 | NUR ---
Slept in between care. Medicated once for pain and Ativan and Seroquel for agitation with help. Episodes of loose BM per caregiver due to Colitis. Good skin /pericare rendered. All needs attended and met. No significant event reported all night. Sitter kept at bedside for safety. Continue care as planned.
[2017-05-02 07:45] VITALS: BP 151/82
[2017-05-02] MEDS: LACTOBACILLUS RHAMNOSUS GG 1 EACH CAPSULE PO SCH ×2 (08:11→21:08)
[2017-05-02] MEDS: ACETAMINOPHEN 325 MG TABLET PO PRN (08:12)
[2017-05-02] MEDS: PROTEIN SUPPLEMENT (PROSTAT) 30 ML LIQUID PO SCH ×3 (08:13→17:09)
--- NOTE | 2017-05-02 08:30 | NUR ---
Pt having diarrhea implemented for pt to be changed right away and apply z guard to prevent skin break down. PT's buttocks is red. 1:1 sitter at bedside. Call light is within reach.
[2017-05-02] MEDS: QUETIAPINE FUMARATE 25 MG TABLET PO PRN (10:13)
--- NOTE | 2017-05-02 10:13 | NUR ---
Pt screaming at sitter consistently. Seroquel given for pt's behavior. Call light is within reach.
[2017-05-02 11:15] VITALS: BP 127/59
--- NOTE | 2017-05-02 11:30 | NUR ---
PT not screaming anymore. Call light is within reach. Seroquel effective.
[2017-05-02] MEDS: LORAZEPAM 0.5 MG TABLET PO PRN (15:34)
--- NOTE | 2017-05-02 15:34 | NUR ---
Pt getting agitated screaming at 1:1 sitter very restless. Decreased stimuli and diversion both non effective. Ativan given.
[2017-05-02 15:53] VITALS: BP 125/75
--- NOTE | 2017-05-02 16:34 | NUR ---
Ativan effective. PT sleeping. Resp 20.
[2017-05-02] MEDS: RIVAROXABAN 10 MG TABLET PO SCH (17:08)
[2017-05-02] MEDS ORDERED: VANC500V PO (18:01)
[2017-05-02] MEDS ORDERED: FAMO-132 PO (18:01)
[2017-05-02] MEDS ORDERED: LACT1CAP57 PO (18:01)
[2017-05-02] MEDS ORDERED: ALBU2.5V7 NEB (18:01)
[2017-05-02] MEDS ORDERED: MENT71OI TOP (18:01)
[2017-05-02] MEDS ORDERED: ACET325T53 PO (18:01)
[2017-05-02] MEDS ORDERED: HYDR-3326 PO (18:01)
--- NOTE | 2017-05-02 19:41 | NUR ---
Received report from MELISSA Burrell. Patient sleeping at this time. Sitter at bedside. Safety measures and fall precaution maintained. Contact isolation maintain and observe for C-diff. Continue current plan of care.
[2017-05-02] MEDS: DOCUSATE SODIUM 100 MG CAPSULE PO SCH (21:06)
[2017-05-02] MEDS ORDERED: HALOPERIDOL 0.5 MG TABLET PO PRN (21:30)
[2017-05-02] MEDS ORDERED: HALOPERIDOL 0.5 MG TABLET PO SCH (21:30)
--- NOTE | 2017-05-02 21:30 | NUR ---
Patient was seen, evaluated by Dr Ames with new orders noted and carried out.
[2017-05-02] MEDS ORDERED: HALOPERIDOL 0.5 MG TABLET ONE (22:08)
--- NOTE | 2017-05-02 23:50 | NUR ---
Restless, agitated and moaning, Medicated for pain as needed and ordered. Will monitor.
--- NOTE | 2017-05-03 00:24 | NUR ---
Discharged patient to [facility] as ordered.
[2017-05-03] MEDS: LORAZEPAM 0.5 MG TABLET PO PRN (01:58)
== END 2017-05-03 01:38 | DRG 871 ==
LOC: EDBD → ER 11:18 → TELE 14:00 → MED 04-28 10:15
PROVIDERS: ADMIT Internal Medicine; ATTEND Internal Medicine
DX: A41.9 Sepsis, unspecified organism (principal); J69.0 Pneumonitis due to inhalation of food and vomit; E43 Unspecified severe protein-calorie malnutrition; L89.159 Pressure ulcer of sacral region, unspecified stage; A04.72 Enterocolitis due to Clostridium difficile, not specified as recurrent; G92 Toxic encephalopathy; F01.51 Vascular dementia, unspecified severity, with behavioral disturbance; F02.81 Dementia in other diseases classified elsewhere, unspecified severity, with behavioral disturbance; K56.7 Ileus, unspecified; D68.59 Other primary thrombophilia; R65.20 Severe sepsis without septic shock; G30.9 Alzheimer's disease, unspecified; Z96.653 Presence of artificial knee joint, bilateral; I25.10 Atherosclerotic heart disease of native coronary artery without angina pectoris; E78.5 Hyperlipidemia, unspecified; F29 Unspecified psychosis not due to a substance or known physiological condition; Z86.73 Personal history of transient ischemic attack (TIA), and cerebral infarction without residual deficits; M19.90 Unspecified osteoarthritis, unspecified site; I11.9 Hypertensive heart disease without heart failure; Z79.01 Long term (current) use of anticoagulants; Z79.899 Other long term (current) drug therapy; Z74.09 Other reduced mobility; I11.0 Hypertensive heart disease with heart failure; I50.9 Heart failure, unspecified; Z68.24 Body mass index [BMI] 24.0-24.9, adult; F32.9 Major depressive disorder, single episode, unspecified; F41.9 Anxiety disorder, unspecified
CPT/HCPCS: 36415; 70030-TC; 71010; 83605; 83735; 84100; 84443; 85025; 85730; 87040; 87086; 87400; 93005; 93307; 94664; A4663; C1758; J1200; J1956; J2060; J2270; J2405; J2543; J3370; J3475; J3490; J7030; J7040; J7050; J7060; Q9951; Q9967

== ENCOUNTER 2017-05-03 01:43 | Inpatient (IN) | payer MEDICARE, MEDICAID ==
[~2017-05-03] VITALS: Ht 160 cm; Wt 63.5 kg
[~2017-05-03 01:43] MED LIST changes: +ACET325T53 PO; +ALBU2.5V7 NEB; +FAMO-132 PO; +HYDR-3326 PO; +LACT1CAP57 PO; -LEVO500T2 PO; +MENT71OI TOP; -METO25TA6 PO; +PROT946L PO; +ROBITUSSIN DM PO; +VANC500V PO
[2017-05-03 02:00] VITALS: BP 121/72
--- NOTE | 2017-05-03 02:00 | NUR ---
Admitted patient for a DX; Gravely Disable/Psychosis under the care of Dr. Ames. Routine admission care done. Plan of care initiated.
[2017-05-03] MEDS ORDERED: MAGNESIUM HYDROXIDE 30 ML LIQUID UDC PO PRN (02:15)
[2017-05-03] MEDS: ACETAMINOPHEN 325 MG TABLET PO PRN (04:07)
[2017-05-03] MEDS: TEMAZEPAM 7.5 MG CAPSULE PO PRN (04:07)
[2017-05-03] MEDS ORDERED: TEMAZEPAM 7.5 MG CAPSULE ONE (04:10)
[2017-05-03] MEDS ORDERED: ACETAMINOPHEN 325 MG TABLET ONE (04:11)
--- NOTE | 2017-05-03 05:15 | NUR ---
On and off screaming. Sitter remains at bedside. Medicated PRN with little effect. All needs attended and met. Continue current plan of care.
[2017-05-03 05:29] VITALS: BP 110/67
[2017-05-03] MEDS ORDERED: ALBUTEROL SULFATE 2.5 MG/3 ML NEBU NEB PRN (10:15)
[2017-05-03] MEDS: PROTEIN SUPPLEMENT (PROSTAT) 30 ML LIQUID PO SCH ×2 (12:00→18:00)
[2017-05-03] MEDS: LORAZEPAM 1 MG TABLET PO PRN ×2 (12:10→22:10)
[2017-05-03] MEDS ORDERED: Medication Not On Formulary EA (Protein Supplement (Promod) 30 ML) PO SCH (13:00)
[2017-05-03] MEDS: VANCOMYCIN FOR PO/GT/NG USE PO SCH ×2 (13:38→18:53)
[2017-05-03] MEDS: HYDROCODONE/APAP 5-325MG TABLET PO PRN (13:39)
[2017-05-03 15:00] VITALS: BP 100/72
--- NOTE | 2017-05-03 16:00 | NUR ---
Initial DC Plan: Patient currently resides at [facility] [[address] [place] [address]; ]. Patient's grandson Quentin [[phone]] would like patient to go to a [facility] facility upon discharge. SW will follow up with MD, patient, and patient's family to discuss most appropriate discharge plans. SW will form a safe and proper discharge.
[2017-05-03] MEDS: RIVAROXABAN 10 MG TABLET PO SCH (18:52)
[2017-05-03 20:23] VITALS: BP 106/72
[2017-05-03] MEDS: HALOPERIDOL 0.5 MG TABLET PO SCH (20:51)
[2017-05-03] MEDS: LACTOBACILLUS RHAMNOSUS GG 1 EACH CAPSULE PO SCH (20:51)
[2017-05-03] MEDS: Z GUARD REMEDY PASTE 57 GM TUBE TOP PRN (20:57)
[2017-05-03] MEDS: GUAIFENESIN/DEXTROMETHORPHAN 5 ML UDC PO PRN (22:10)
[2017-05-04] MEDS: VANCOMYCIN FOR PO/GT/NG USE PO SCH ×5 (00:05→23:23)
[2017-05-04] MEDS: TEMAZEPAM 7.5 MG CAPSULE PO PRN (00:09)
[2017-05-04] MEDS: Z GUARD REMEDY PASTE 57 GM TUBE TOP PRN ×3 (01:04→21:12)
[2017-05-04] MEDS: LORAZEPAM 1 MG TABLET PO PRN ×2 (05:59→22:14)
[2017-05-04 07:30] VITALS: BP 112/68
[2017-05-04] MEDS ORDERED: [UNRECOGNIZED DRUG - REMARK] PO SCH (09:00)
[2017-05-04] MEDS: FAMOTIDINE 20 MG TABLET PO SCH (09:12)
[2017-05-04] MEDS: MULTIVIT, IRON, MIN NO. 8, FA TABLET PO SCH (09:13)
[2017-05-04] MEDS: HALOPERIDOL 0.5 MG TABLET PO SCH ×3 (09:15→20:32)
[2017-05-04] MEDS: LACTOBACILLUS RHAMNOSUS GG 1 EACH CAPSULE PO SCH ×2 (09:15→20:32)
[2017-05-04] MEDS: PROTEIN SUPPLEMENT (PROSTAT) 30 ML LIQUID PO SCH ×3 (09:17→17:44)
[2017-05-04 09:24] LABS: BASOPHILS % (AUTO) 0.5 % (0.0-2.0); EOSINOPHILS # (AUTO) 0.2 K/uL (0.0-0.7); EOSINOPHILS % (AUTO) 2.5 % (0.0-7.0); HEMATOCRIT 38.8 % (31.2-41.9); HEMOGLOBIN 12.6 g/dL (10.9-14.3); LYMPHOCYTES # (AUTO) 2.4 K/uL (20.0-40.0); LYMPHOCYTES % (AUTO) 36.5 % (20.5-51.5); MEAN CORPUSCULAR HEMOGLOBIN 27.4 uug (24.7-32.8); MEAN CORPUSCULAR HGB CONC 32 g/dL (32.3-35.6); MEAN CORPUSCULAR VOLUME 84.5 fL (75.5-95.3); MONOCYTES # (AUTO) 0.9 K/uL (2.0-10.0); MONOCYTES % (AUTO) 13.1 % (0.0-11.0); NEUTROPHILS # (AUTO) 3.1 K/uL (1.8-8.9); NEUTROPHILS % (AUTO) 47.4 % (38.5-71.5); PLATELET COUNT (AUTO) 316 K/uL (179-408); RED BLOOD CELL COUNT(AUTO) 4.59 MIL/uL (3.63-4.92); WHITE BLOOD COUNT (AUTO) 6.5 K/uL (3.8-11.8)
[2017-05-04 09:32] LABS: ALANINE AMINOTRANSFERASE 17 U/L (14-59); ALKALINE PHOSPHATASE 77 U/L (50-136); ASPARTATE AMINOTRANSFERASE 32 U/L (15-37); BILIRUBIN,TOTAL 0.2 mg/dL (0.2-1.0); CARBON DIOXIDE 30 mmol/L (21-32); CHLORIDE 97 mmol/L (98-107); CREATININE 0.7 mg/dL (0.6-1.3); GLUCOSE 98 mg/dL (74-106); MAGNESIUM 1.6 mg/dL (1.8-2.4); PHOSPHOROUS 3.2 mg/dL (2.5-4.9); POTASSIUM 3.6 mmol/L (3.5-5.1); TOTAL PROTEIN, SERUM 6.3 g/dL (6.4-8.2); UREA NITROGEN, BLOOD 12 mg/dL (7-18)
[2017-05-04 09:43] LABS: THYROID STIMULATING HORMONE 6.974 mIU/mL (0.358-3.740)
[2017-05-04] MEDS ORDERED: MAGNESIUM OXIDE 400 MG TABLET PO ONE (11:00)
[2017-05-04] MEDS ORDERED: IPRATROPIUM BROMIDE 0.5 MG/2.5 ML NEBU NEB PRN (14:30)
[2017-05-04 16:55] VITALS: BP 115/76
[2017-05-04] MEDS: RIVAROXABAN 10 MG TABLET PO SCH (17:42)
[2017-05-04 20:00] VITALS: BP 111/73
--- NOTE | 2017-05-04 21:28 | NUR ---
GPS: Pt.transferred on 2nd floor as psych overflow. Left mhu via w/c in no form of distress noted. Report given to wood floor layer RN.
--- NOTE | 2017-05-04 21:30 | NUR ---
ADMITTED IN [facility] PSYCH OVERFLOW, PATIENT AWAKE. PATIENT HAS EPISODE OF LBM PER REPORT PLACED ON CONTACT ISOLATION, PATIENT ALSO IN 1;1 SITTER FOR SAFETY. CONT TO MONITOR.
[2017-05-04] MEDS: ACETAMINOPHEN 325 MG TABLET PO PRN (22:13)
[2017-05-05 04:00] VITALS: BP 110/72
[2017-05-05] MEDS: VANCOMYCIN FOR PO/GT/NG USE PO SCH ×3 (05:39→17:00)
--- NOTE | 2017-05-05 06:17 | NUR ---
PATIENT SLEPT MOST OF THE NIGHT, NO SOB NO CHEST PAIN NOTED, PATIENT HAD ONLY (1) ONE LBM ON THIS SHIFT. CONT 1;1 SITTER FOR SAFETY, RENDERED GOOD ZHANG CARE AFTER BM, PATIENT WAS QUIET MOST OF THE NIGHT, OFFERED WATER NEEDED, REMAIN IN CONTACT ISOLATIONS FOR LBM, CONT TO MONITOR.
[2017-05-05] MEDS: Z GUARD REMEDY PASTE 57 GM TUBE TOP PRN (06:49)
--- NOTE | 2017-05-05 07:00 | NUR ---
RECEIVED REPORT FROM RELEASE AND TECHNICAL RECORDS CLERK NURSE, PATIENT IN BED SCREAMING, REPOSITIONED PATIENT WITH SITTER, AND OFFERED SOME ANXIETY MEDICATION. BED IN LOW POSITION, SIDE RAILS UP X2. SITTER AT BEDSIDE
[2017-05-05] MEDS: PROTEIN SUPPLEMENT (PROSTAT) 30 ML LIQUID PO SCH ×3 (07:46→16:56)
[2017-05-05] MEDS: LORAZEPAM 1 MG TABLET PO PRN (07:46)
[2017-05-05 08:00] VITALS: BP 114/76
[2017-05-05] MEDS: MULTIVIT, IRON, MIN NO. 8, FA TABLET PO SCH (08:29)
[2017-05-05] MEDS: LACTOBACILLUS RHAMNOSUS GG 1 EACH CAPSULE PO SCH ×2 (08:29→21:21)
[2017-05-05] MEDS: FAMOTIDINE 20 MG TABLET PO SCH (08:29)
[2017-05-05] MEDS: HALOPERIDOL 0.5 MG TABLET PO SCH ×3 (08:29→21:22)
[2017-05-05] MEDS: GUAIFENESIN/DEXTROMETHORPHAN 5 ML UDC PO PRN (14:05)
[2017-05-05] MEDS: RIVAROXABAN 10 MG TABLET PO SCH (17:01)
[2017-05-05] MEDS: MAG HYDROX/AL HYDROX/SIMETH 30 ML LIQUID UDC PO PRN (17:49)
[2017-05-05 19:00] VITALS: BP 111/72
--- NOTE | 2017-05-05 19:21 | NUR ---
patient has been cooperative with care. Patient reported abdominal discomfort and mylanta was offered. no current pain, patient is in bed, no evidence of distress noted, bed in low position, side rails up x2. sitter at bedside.
--- NOTE | 2017-05-05 19:50 | NUR ---
PATIENT AWAKE ON BED, NO BEHAVIORAL PROBLEMS NOTED . 1:1 SITTER AT THE BED SIDE. OBSERVING CONTACT ISOLATION FOR CDIFF. NO DIARRHEA NOTED.
[2017-05-06] MEDS: TEMAZEPAM 7.5 MG CAPSULE PO PRN ×2 (00:08→19:59)
[2017-05-06] MEDS: LORAZEPAM 1 MG TABLET PO PRN ×3 (00:08→19:01)
[2017-05-06] MEDS: VANCOMYCIN FOR PO/GT/NG USE PO SCH ×4 (00:10→17:08)
[2017-05-06 04:00] VITALS: BP 146/78
[2017-05-06] MEDS: LEVOTHYROXINE SODIUM 50 MCG TABLET PO SCH (06:05)
--- NOTE | 2017-05-06 07:20 | NUR ---
PATIENT IN BED REPEATEDLY YELLING "HELP ME HELP ME", PATIENT WAS CLEANED UP AND MADE COMFORTABLE. OFFERED MEDICATION TO HELP HER RELAX.
--- NOTE | 2017-05-06 07:25 | NUR ---
UPON FURTHER EVALUATION OF PATIENT, REDNESS AND BLEEDING OF PERINEUM WAS NOTED BENEATH A LARGE AMOUNT OF STOOL. PATIENT SCREAMED WITH EACH WIPING. ZGUARD APPLIED AND MEPILEX TO SEPARATE SKIN FROM TOUCHING EACH OTHER.
[2017-05-06] MEDS: PROTEIN SUPPLEMENT (PROSTAT) 30 ML LIQUID PO SCH ×3 (08:09→17:09)
[2017-05-06] MEDS: MULTIVIT, IRON, MIN NO. 8, FA TABLET PO SCH (08:59)
[2017-05-06] MEDS: HALOPERIDOL 0.5 MG TABLET PO SCH ×3 (08:59→19:59)
[2017-05-06] MEDS: FAMOTIDINE 20 MG TABLET PO SCH (08:59)
[2017-05-06] MEDS: LACTOBACILLUS RHAMNOSUS GG 1 EACH CAPSULE PO SCH ×2 (08:59→19:59)
[2017-05-06 13:03] VITALS: BP 121/78
[2017-05-06] MEDS: MAG HYDROX/AL HYDROX/SIMETH 30 ML LIQUID UDC PO PRN (14:16)
--- NOTE | 2017-05-06 15:00 | NUR ---
RECTAL TUBE WAS INSERTED DUE TO EXCESSIVE AMOUNTS OF STOOL, AND OPEN WOUNDS.
[2017-05-06 15:45] VITALS: BP 124/79
[2017-05-06] MEDS: RIVAROXABAN 10 MG TABLET PO SCH (17:08)
--- NOTE | 2017-05-06 18:56 | NUR ---
PATIENT HAS BEEN COOPERATIVE WITH CARE. PATIENT CURRENTLY SCREAMING HELP ME. BLUE PHONE ACCESSED FOR INTERPRETATION AND PATIENT APOLOGIZED FOR YELLING, AND SAID THAT SHE WAS FINE. AFTER DEPARTING FROM THE ROOM, PATIENT CONTINUE TO YELL HELP ME.
[2017-05-06 19:00] VITALS: BP 145/95
--- NOTE | 2017-05-06 19:20 | NUR ---
Received patient awake, yelling, restless. Sitter at bedside cleaning patient due to bladder incontinence. Flexi seal in placed. No output noted at this time. safety measures and fall/contact precaution maintained. Continue care as planned.
[2017-05-06] MEDS: ACETAMINOPHEN 325 MG TABLET PO PRN (19:59)
[2017-05-06] MEDS: CHOLESTYRAMINE/SUCROSE 4 GM PACKET PO SCH (22:13)
[2017-05-06] MEDS: METRONIDAZOLE 500 MG TABLET PO SCH (22:14)
--- NOTE | 2017-05-06 22:24 | NUR ---
Awakened and starts being restless again, good malcolm care rendered by the sitter, turned and repositioned for comfort. Due meds given as ordered. Will continue to monitor.
[2017-05-07] MEDS: VANCOMYCIN FOR PO/GT/NG USE PO SCH ×5 (00:35→23:24)
[2017-05-07] MEDS: LORAZEPAM 1 MG TABLET PO PRN ×3 (01:50→12:09)
[2017-05-07 04:00] VITALS: BP 160/84
[2017-05-07] MEDS: HYDROCODONE/APAP 5-325MG TABLET PO PRN ×3 (04:18→23:29)
--- NOTE | 2017-05-07 04:19 | NUR ---
Irrigated Flexi Seal no return. Patient presented no discomforts at this time.
[2017-05-07] MEDS: METRONIDAZOLE 500 MG TABLET PO SCH ×3 (05:25→20:47)
[2017-05-07] MEDS: LEVOTHYROXINE SODIUM 50 MCG TABLET PO SCH (05:28)
--- NOTE | 2017-05-07 06:26 | NUR ---
Yelling /screaming/confused. Sitter utilized for safety. No fall/injury reported. PRN meds given as ordered and needed with help. Slept 3 hours and half only per sitter. Flexi seal in placed, patent but not draining much, pasty in consistency despite couple of times irrigation performed. Medicated once for complaint of generalized pain. All needs attended and met. Continue care as planned.
[2017-05-07 08:00] VITALS: BP 119/69
[2017-05-07] MEDS: PROTEIN SUPPLEMENT (PROSTAT) 30 ML LIQUID PO SCH ×3 (08:00→17:00)
[2017-05-07] MEDS: LACTOBACILLUS RHAMNOSUS GG 1 EACH CAPSULE PO SCH ×2 (09:54→20:47)
[2017-05-07] MEDS: CHOLESTYRAMINE/SUCROSE 4 GM PACKET PO SCH ×2 (09:54→20:48)
[2017-05-07] MEDS: MULTIVIT, IRON, MIN NO. 8, FA TABLET PO SCH (09:54)
[2017-05-07] MEDS: HALOPERIDOL 0.5 MG TABLET PO SCH ×4 (09:54→20:47)
[2017-05-07 12:00] VITALS: BP 139/85
[2017-05-07] MEDS: FAMOTIDINE 20 MG TABLET PO SCH (12:09)
[2017-05-07 17:00] VITALS: BP_SYST 131; BP_SYST 139; BP_DIAS 79; BP_DIAS 85
[2017-05-07] MEDS: RIVAROXABAN 10 MG TABLET PO SCH (18:34)
[2017-05-07] MEDS: ACETAMINOPHEN 325 MG TABLET PO PRN (22:23)
[2017-05-07 22:30] VITALS: BP 120/77
--- NOTE | 2017-05-08 00:23 | NUR ---
NURSING CLINICAL NOTE: Pt is complaining of lower abdomen discomfort and unable to urinate. bladder scan is done and shows 422 ml retaining urine. DOG WARDEN. Suresh made aware and ordered to insert Santiago catheter on the patient. Santiago catheter 18 F is inserted, urine is draining, patient states relief . will continue to monitor for any changes.
[2017-05-08] MEDS: LORAZEPAM 1 MG TABLET PO PRN ×2 (01:23→09:27)
[2017-05-08] MEDS: METRONIDAZOLE 500 MG TABLET PO SCH ×3 (05:54→21:29)
[2017-05-08] MEDS: VANCOMYCIN FOR PO/GT/NG USE PO SCH ×3 (05:55→17:16)
[2017-05-08] MEDS: LEVOTHYROXINE SODIUM 50 MCG TABLET PO SCH (05:55)
--- NOTE | 2017-05-08 07:03 | NUR ---
END OF SHIFT SUMMERY: Pt is still confused and disorganized, unable to assess the level of orientation,. on room air, sating well. VSS, complained of moderate headache, norco was given with relief, pt started to be agitated, ativan was given with relief. pt slept most of the shift. Santiago catheter still in place, draining well. will continue to monitor and endorse patient to the next nurse to follow up.
[2017-05-08] MEDS: PROTEIN SUPPLEMENT (PROSTAT) 30 ML LIQUID PO SCH ×3 (08:10→15:57)
[2017-05-08] MEDS: FAMOTIDINE 20 MG TABLET PO SCH (08:10)
[2017-05-08] MEDS: HALOPERIDOL 0.5 MG TABLET PO SCH ×4 (08:10→21:29)
[2017-05-08] MEDS: MULTIVIT, IRON, MIN NO. 8, FA TABLET PO SCH (08:10)
[2017-05-08] MEDS: LACTOBACILLUS RHAMNOSUS GG 1 EACH CAPSULE PO SCH ×2 (08:10→21:29)
[2017-05-08] MEDS: CHOLESTYRAMINE/SUCROSE 4 GM PACKET PO SCH ×2 (08:23→21:29)
[2017-05-08] MEDS: HYDROCODONE/APAP 5-325MG TABLET PO PRN ×2 (09:47→17:16)
[2017-05-08 12:00] VITALS: BP 130/73
[2017-05-08 15:17] VITALS: BP 142/83
[2017-05-08] MEDS: RIVAROXABAN 10 MG TABLET PO SCH (17:16)
[2017-05-08 20:00] VITALS: BP 131/86
--- NOTE | 2017-05-08 20:00 | NUR ---
RECEIVED PATIENT AWAKE IN BED WITH 1:1 SITTER AT BEDSIDE. PATIENT IS ALERT TO SELF ONLY. ROMANIAN SPEAKING BUT EVEN WHEN TRANSLATED TO IN ROMANIAN, PATIENT IS STILL CONFUSED AND DISORIENTED. RECTAL TUBE AND F/C INTACT AND PATENT. VSS. NO S/S OF PAIN OR DISCOMFORT. NO FACIAL GRIMACE NOTED. NO RESP. DISTRESS NOTED. BED ALARM ON. CALL LIGHT IN REACH. ALL NEEDS ATTENDED. WILL CONTINUE TO MONITOR.
[2017-05-09] MEDS: VANCOMYCIN FOR PO/GT/NG USE PO SCH ×5 (00:08→23:23)
[2017-05-09] MEDS: LORAZEPAM 1 MG TABLET PO PRN ×3 (00:16→20:06)
--- NOTE | 2017-05-09 00:20 | NUR ---
PATIENT AWAKE IN BED, YELLING AND SCREAMING. PATIENT GIVEN ATIVAN 1MG PO PRN FOR AGITATION. SITTER AT BEDSIDE FOR SAFETY.
--- NOTE | 2017-05-09 01:30 | NUR ---
PATIENT ASLEEP. SITTER AT BEDSIDE.
[2017-05-09] MEDS: HYDROCODONE/APAP 5-325MG TABLET PO PRN ×2 (04:09→11:22)
--- NOTE | 2017-05-09 04:10 | NUR ---
PATIENT GIVEN NORCO 1 TAB PO PRN FOR PAIN. SITTER AT BEDSIDE. BED ALARM ON.
[2017-05-09] MEDS: METRONIDAZOLE 500 MG TABLET PO SCH ×3 (05:31→21:37)
[2017-05-09] MEDS: LEVOTHYROXINE SODIUM 50 MCG TABLET PO SCH (06:10)
--- NOTE | 2017-05-09 06:24 | NUR ---
PATIENT ASLEEP IN BED. SITTER AT BEDSIDE. NORCO EFFECTIVE, NO S/S OF ANY PAIN OR DISCOMFORT. PATIENT SLEPT AT TOTAL OF 1 HOUR AND 15 MINUTES. BED ALARM ON. CALL LIGHT IN REACH. ALL NEEDS ATTENDED. WILL CONTINUE TO MONITOR. ALL NEEDS ATTENDED.
[2017-05-09] MEDS: PROTEIN SUPPLEMENT (PROSTAT) 30 ML LIQUID PO SCH ×3 (08:05→17:15)
[2017-05-09] MEDS: LACTOBACILLUS RHAMNOSUS GG 1 EACH CAPSULE PO SCH ×2 (08:06→20:06)
[2017-05-09] MEDS: CHOLESTYRAMINE/SUCROSE 4 GM PACKET PO SCH ×2 (08:06→20:05)
[2017-05-09] MEDS: MULTIVIT, IRON, MIN NO. 8, FA TABLET PO SCH (08:06)
[2017-05-09] MEDS: HALOPERIDOL 0.5 MG TABLET PO SCH ×2 (08:06→14:01)
[2017-05-09] MEDS: FAMOTIDINE 20 MG TABLET PO SCH (08:06)
[2017-05-09 11:35] VITALS: BP 131/84
--- NOTE | 2017-05-09 12:55 | NUR ---
rectal tube removed, per orders. will continue to monitor pt
[2017-05-09] MEDS: HALOPERIDOL 1 MG TABLET PO SCH (17:14)
[2017-05-09] MEDS: RIVAROXABAN 10 MG TABLET PO SCH (17:14)
[2017-05-09 20:00] VITALS: BP 139/82
--- NOTE | 2017-05-09 20:05 | NUR ---
PATIENT IS AWAKE IN BED WITH 1:1 SITTER AT BEDSIDE. PATIENT IS VERY AGITATED AND CONFUSED. YELLING AND SCREAMING OUT. PATIENT GIVEN ATIVAN 1MG PO PRN FOR AGITATION. VSS. ON ISOLATION FOR CONTACT, C-DIFF. BED ALARM ON. ALL NEEDS ATTENDED. WILL CONTINUE TO MONITOR. .
--- NOTE | 2017-05-09 22:00 | NUR ---
PATIENT STILL AWAKE IN BED, YELLING OUT. SITTER AT BEDSIDE FOR SAFETY. BED ALARM ON.
[2017-05-09] MEDS: TEMAZEPAM 7.5 MG CAPSULE PO PRN (22:52)
--- NOTE | 2017-05-10 01:45 | NUR ---
PATIENT AWAKE IN BED. VERY ANXIOUS AND AGITATED. PATIENT IS CROATIAN SPEAKING ONLY AND VERY CONFUSED, UNABLE TO VERBALIZE IF PAIN IS PRESENT. FACIAL GRIMACE NOTED AT TIMES, AND PATIENT IS VERY RESTLESS. PATIENT GIVEN ATIVAN 1MG PO PRN FOR ANXIETY AND NORCO 1 TAB 5/325 PO PRN FOR PAIN. VSS. BED ALARM ON. WILL CONTINUE TO CLOSELY MONITOR. ALL NEEDS ATTENDED.
[2017-05-10] MEDS: HYDROCODONE/APAP 5-325MG TABLET PO PRN ×2 (01:46→12:48)
[2017-05-10] MEDS: LORAZEPAM 1 MG TABLET PO PRN ×2 (01:46→12:48)
--- NOTE | 2017-05-10 02:30 | NUR ---
PATIENT ASLEEP. NO S/S OF ANY SOB. SLEEPING WELL. BED ALARM ON. CALL LIGHT IN REACH. ALL NEEDS ATTENDED. WILL CONTINUE TO MONITOR .
[2017-05-10] MEDS: VANCOMYCIN FOR PO/GT/NG USE PO SCH (05:51)
[2017-05-10] MEDS: METRONIDAZOLE 500 MG TABLET PO SCH ×2 (05:51→13:05)
--- NOTE | 2017-05-10 06:08 | NUR ---
PATIENT AWAKE IN BED. SLEPT A TOTAL OF 4 HOURS AND 45 MINUTES. BED ALARM ON. ALL NEEDS ATTENDED. WILL CONTINUE TO MONITOR AND ASSESS.
[2017-05-10] MEDS: LEVOTHYROXINE SODIUM 50 MCG TABLET PO SCH (06:12)
[2017-05-10] MEDS: LACTOBACILLUS RHAMNOSUS GG 1 EACH CAPSULE PO SCH (08:41)
[2017-05-10] MEDS: PROTEIN SUPPLEMENT (PROSTAT) 30 ML LIQUID PO SCH ×3 (08:41→17:00)
[2017-05-10] MEDS: MULTIVIT, IRON, MIN NO. 8, FA TABLET PO SCH (08:41)
[2017-05-10] MEDS: CHOLESTYRAMINE/SUCROSE 4 GM PACKET PO SCH (08:41)
[2017-05-10] MEDS: HALOPERIDOL 1 MG TABLET PO SCH ×3 (08:41→18:00)
[2017-05-10] MEDS: FAMOTIDINE 20 MG TABLET PO SCH (08:41)
--- NOTE | 2017-05-10 08:49 | NUR ---
CLIENT IS AWAKE,ALERT AND ORIENTED TO HER NAME. CLIENT IS SITTING UP RIGHT AND ATE BREAKFAST WITH THE ASSISTANCE OF THE 1:1 SITTER. COMPLIANT WITH MEDICATIONS. NO APPARENT S/S OF SOB, DISTRESS, DISCOMFORT OR PAIN. CLIENT STATES "MOMMA, MOMMA".
[2017-05-10 11:30] VITALS: BP 110/74
--- NOTE | 2017-05-10 13:34 | NUR ---
Social work discharge note: Pt. is now cleared by Dr Darby and no longer needs isolation. She will return to [facility] at 1500. This scientific writer spoke with Anthony [phone] from [facility] who confirmed that they can accept pt. after 1500. Britta magallanes RN is aware of discharge plan and will order ambulance. Pt. remains confused which is her baseline. Pt. will go to SNF via [facility]. Family had wanted [facility] who refused to accept patient. [facility] also [facility] to [facility] patient. Dr Ames will lift the [phone] since pt. now has an accepting SNF.
[2017-05-10 15:37] VITALS: BP 122/74
[2017-05-10] MEDS: RIVAROXABAN 10 MG TABLET PO SCH (18:03)
--- NOTE | 2017-05-10 19:28 | NUR ---
Client has been discharge with orders from the DM. Client is stable and being transported by two asphalt layer from [facility] to [facility]. All medication given prior to discharge. Client has been compliant with medication and nursing care.
--- NOTE | 2017-05-11 12:29 | NUR ---
Social Work Discharge Update; Received angry phone call from son, Aman, who came to [facility]. floor today to visit his mother. He was not informed of discharge yesterday. This science writer apologized profusely for this. Aman accepted this. JESUS Saavedra and nephew [phone] was called by this science writer and she apologized for the lack of notification yesterday. They asked for help with completion of her basestone application. Record Changer Tester agreed to assist where possible but stated that it was up to the MD to sign. Quentin and Aman have this science writer's direct phone number.
== END 2017-05-10 19:30 | DRG 885 ==
LOC: GPSOV 01:43 → EDBD 01:43 → GPS 07:59 → GPSOV 05-04 21:28
PROVIDERS: ADMIT Psychiatry & Neurology Psychiatry; ATTEND Internal Medicine
DX: F23 Brief psychotic disorder (principal); F01.51 Vascular dementia, unspecified severity, with behavioral disturbance; E43 Unspecified severe protein-calorie malnutrition; I11.0 Hypertensive heart disease with heart failure; J69.0 Pneumonitis due to inhalation of food and vomit; A04.72 Enterocolitis due to Clostridium difficile, not specified as recurrent; D68.59 Other primary thrombophilia; K56.7 Ileus, unspecified; I48.0 Paroxysmal atrial fibrillation; I50.32 Chronic diastolic (congestive) heart failure; L89.90 Pressure ulcer of unspecified site, unspecified stage; Z79.01 Long term (current) use of anticoagulants; E78.5 Hyperlipidemia, unspecified; Z96.653 Presence of artificial knee joint, bilateral; I25.10 Atherosclerotic heart disease of native coronary artery without angina pectoris; M19.90 Unspecified osteoarthritis, unspecified site; Z68.24 Body mass index [BMI] 24.0-24.9, adult; F41.8 Other specified anxiety disorders; Z86.73 Personal history of transient ischemic attack (TIA), and cerebral infarction without residual deficits; E03.9 Hypothyroidism, unspecified; Z79.899 Other long term (current) drug therapy
CPT/HCPCS: 36415; 71010; 83735; 84100; 84443; 85025; 97116; 97530; A4663; J3370

== ENCOUNTER 2018-07-03 11:54 | Inpatient (IN) | payer MEDICARE, MEDICAID ==
[~2018-07-03] VITALS: Ht 165.1 cm; Wt 90.7 kg
[2018-07-03] MEDS ORDERED: diphenhydrAMINE 50 MG/1 ML VIAL IV ONE (12:15)
[2018-07-03] MEDS ORDERED: diphenhydrAMINE 50 MG/1 ML VIAL ONE (12:20)
[2018-07-03] MEDS ORDERED: HYDROMORPHONE 1 MG/1 ML DISP.SYRIN IV ONE (12:30)
[2018-07-03] MEDS ORDERED: ONDANSETRON IV *ER 4 MG/2 ML VIAL IV ONE (12:30)
[2018-07-03] MEDS ORDERED: HYDROMORPHONE 1 MG/1 ML DISP.SYRIN ONE (12:31)
[2018-07-03] MEDS ORDERED: ONDANSETRON 4 MG/2 ML VIAL ONE (12:32)
[2018-07-03 12:34] LABS: BASOPHILS # (AUTO) 0.1 K/uL (0.0-8.0); BASOPHILS % (AUTO) 0.9 % (0.0-2.0); EOSINOPHILS # (AUTO) 0.5 K/uL (0.0-0.7); HEMATOCRIT 46.7 % (31.2-41.9); HEMOGLOBIN 15.5 g/dL (10.9-14.3); LYMPHOCYTES # (AUTO) 4.4 K/uL (20.0-40.0); LYMPHOCYTES % (AUTO) 28.7 % (20.5-51.5); MEAN CORPUSCULAR HEMOGLOBIN 30.4 uug (24.7-32.8); MEAN CORPUSCULAR HGB CONC 33 g/dL (32.3-35.6); MEAN CORPUSCULAR VOLUME 91.8 fL (75.5-95.3); MONOCYTES # (AUTO) 1.5 K/uL (2.0-10.0); MONOCYTES % (AUTO) 9.4 % (0.0-11.0); PLATELET COUNT (AUTO) 239 K/uL (179-408); RED BLOOD CELL COUNT(AUTO) 5.09 MIL/uL (3.63-4.92); WHITE BLOOD COUNT (AUTO) 15.5 K/uL (3.8-11.8)
[2018-07-03 12:40] LABS: ALANINE AMINOTRANSFERASE 27 U/L (14-59); ALKALINE PHOSPHATASE 71 U/L (50-136); ASPARTATE AMINOTRANSFERASE 26 U/L (15-37); BILIRUBIN,DIRECT 0.1 mg/dL (0.0-0.2); BILIRUBIN,TOTAL 0.3 mg/dL (0.2-1.0); CARBON DIOXIDE 23 mmol/L (21-32); CHLORIDE 101 mmol/L (98-107); CREATININE 1.1 mg/dL (0.6-1.3); GLUCOSE 126 mg/dL (74-106); LIPASE 104 U/L (73-393); POTASSIUM 4.6 mmol/L (3.5-5.1); UREA NITROGEN, BLOOD 22 mg/dL (7-18)
[2018-07-03] MEDS ORDERED: LORAZEPAM 2 MG/1 ML VIAL ONE (12:42)
[2018-07-03] MEDS ORDERED: LORAZEPAM 2 MG/1 ML VIAL IV ONE (12:45)
[2018-07-03] MEDS ORDERED: SERT25TA PO (12:54)
[2018-07-03] MEDS ORDERED: FAMO20TA8 PO (12:54)
[2018-07-03] MEDS ORDERED: DEXT15CA17 PO (12:54)
[2018-07-03] MEDS ORDERED: ACID1TAB12 PO (12:54)
[2018-07-03] MEDS ORDERED: CHOL100045 PO (12:54)
[2018-07-03] MEDS ORDERED: DEXT15DR6 EACHEYE (12:54)
[2018-07-03] MEDS ORDERED: BISA10SU61 RC (12:54)
[2018-07-03] MEDS ORDERED: DONE10TA11 PO (12:54)
[2018-07-03] MEDS ORDERED: SENN-168 PO (12:54)
[2018-07-03] MEDS ORDERED: LEVO50TA8 PO (12:54)
[2018-07-03] MEDS ORDERED: OLOP5DRO EACHEYE (12:54)
[2018-07-03] MEDS ORDERED: ACET-73 PO (12:57)
--- NOTE | 2018-07-03 13:03 | NUR ---
PT IS IN ROOM #2A. DR BLAIR EVALUATED THE PT.
[2018-07-03 14:01] LABS: *BILIRUBIN,URIN NEGATIVE (NEGATIVE); *BLOOD, URINE Trace-intact (NEGATIVE); *CLARITY,URINE CLEAR (CLEAR); *COLOR,URINE YELLOW (YELLOW); *KETONES,URINE NEGATIVE (NEGATIVE); *UROBILINOGEN,URINE 0.2 E.U./dl (NORMAL); LEUKOCYTE ESTERASE ,URINE 2+ (NEGATIVE); NITRITE, URINE POSITIVE (NEGATIVE); UGLUCOSE NEGATIVE (NEGATIVE)
[2018-07-03 14:05] LABS: RBC,URINE 0-3 /HPF (0-3)
[2018-07-03 14:06] LABS: BACTERIA,URINE MANY /HPF (NONE SEEN); SQUAMOUS EPITHELIAL CELL,UR FEW /HPF (NONE SEEN); WBC,URINE 80-100 /HPF (0-3)
--- NOTE | 2018-07-03 14:12 | NUR ---
REPORT GIVEN TO MEDICAID PLAN COMPLIANCE DIRECTOR ALICIA.
--- NOTE | 2018-07-03 14:58 | NUR ---
PT WAS TRANSFERD TO TELEMETRY ROOM #324.
--- NOTE | 2018-07-03 15:00 | NUR ---
PATIENT ADMIT TP TELE A/O 1 , VERY DRAUZZY, WANTS TO SLEEP, AWARE THAT ER GAVE PAIN MEDS RECENTLY, VS STABLE
[2018-07-03 16:30] VITALS: BP 111/50
[2018-07-03] MEDS ORDERED: SWABABLE VALVE TRANSFER SET EA MC ONE (17:04)
[2018-07-03] MEDS ORDERED: NORMAL SALINE FLUSH 10 ML DISP.SYRIN ONE (17:05)
[2018-07-03] MEDS ORDERED: IOHEXOL 350 100 ML INFUS..BTL ONE (17:05)
[2018-07-03] MEDS ORDERED: IV NORMAL SALINE 250 ML IV ONE (17:05)
[2018-07-03 17:46] LABS: *AMPHETAMINE, URINE NEGATIVE (NEGATIVE); *BARBITURATE, URINE NEGATIVE (NEGATIVE); *CANNABINOID, URINE NEGATIVE (NEGATIVE); *COCCAINE, URINE NEGATIVE (NEGATIVE); *OPIATE, URINE NEGATIVE (NEGATIVE); *PHENCYCLIDINE SCREEN,URINE NEGATIVE (NEGATIVE)
[2018-07-03] MEDS: CEFTRIAXONE 1 G in IV DEXTROSE 5% 50 ML IV SCH (18:31)
[2018-07-03] MEDS: ASPIRIN 81 MG TAB.CHEW PO SCH (18:46)
--- NOTE | 2018-07-03 18:55 | NUR ---
PATIENT IS AAO 3, COOPERATIVE, NEURO EVAL IS DONE, IV ABX STARTED , FORGETS WHERE SHE IS SOMETIMES AND CONFUSED AT TIMES CT OF HEAD W CONTRAST IS DONE WITH SIGNED CONSENT SAFETY REINFORCED
[2018-07-03] MEDS ORDERED: BISACODYL 10 MG SUPP.RECT RC PRN (19:00)
[2018-07-03] MEDS ORDERED: ACETAMINOPHEN 325 MG TABLET PO PRN (19:00)
[2018-07-03] MEDS ORDERED: ACETAMINOPHEN 650 MG SUPP.RECT RC PRN (19:00)
--- NOTE | 2018-07-03 19:10 | NUR ---
MRI APPROVED, NO AUDIO VIDEO REPAIRER AVAILABLE TO NIGHT.IT WILL BE DONE TOMORROW AM , NURSE ALICIA IS AWARE.
--- NOTE | 2018-07-03 19:20 | NUR ---
Received patient lying in bed. Asleep but arouse to verbal and tactile stimuli. In no acute distress. No signs or symptoms of pain or SOB. On O2 at 2LPMM via NC in place. No facial drooping noted, bilateral UE and LE ROM WNL. IV site on left AC intact and patent. NSR on tele at 64/min. Safety measure initiated and call last within reach.
[2018-07-03] MEDS: ACIDOPHILUS/BULGARICUS CHEW TAB PO SCH (20:15)
[2018-07-03] MEDS: SENNOSIDES 1 TABLET PO SCH (20:16)
[2018-07-03] MEDS: ATORVASTATIN 40 MG TABLET PO SCH (20:16)
[2018-07-03 20:20] VITALS: BP 121/67
[2018-07-03] MEDS ORDERED: Medication Not On Formulary EA (Acidophilus/Bulgaricus (Floranex Tablet) 1 EACH) PO SCH (21:00)
[2018-07-04 00:43] VITALS: BP 115/52
[2018-07-04 05:17] VITALS: BP 108/60
[2018-07-04] MEDS: LEVOTHYROXINE SODIUM 50 MCG TABLET PO SCH (06:08)
[2018-07-04 06:14] LABS: BASOPHILS # (AUTO) 0.1 K/uL (0.0-8.0); BASOPHILS % (AUTO) 0.8 % (0.0-2.0); EOSINOPHILS # (AUTO) 0.3 K/uL (0.0-0.7); EOSINOPHILS % (AUTO) 3.2 % (0.0-7.0); HEMATOCRIT 41.8 % (31.2-41.9); HEMOGLOBIN 13.9 g/dL (10.9-14.3); LYMPHOCYTES % (AUTO) 20.1 % (20.5-51.5); MEAN CORPUSCULAR HEMOGLOBIN 30.4 uug (24.7-32.8); MEAN CORPUSCULAR HGB CONC 33 g/dL (32.3-35.6); MEAN CORPUSCULAR VOLUME 91.5 fL (75.5-95.3); MONOCYTES # (AUTO) 0.9 K/uL (2.0-10.0); MONOCYTES % (AUTO) 9.3 % (0.0-11.0); NEUTROPHILS # (AUTO) 6.5 K/uL (1.8-8.9); NEUTROPHILS % (AUTO) 66.6 % (38.5-71.5); PLATELET COUNT (AUTO) 190 K/uL (179-408); RED BLOOD CELL COUNT(AUTO) 4.57 MIL/uL (3.63-4.92); WHITE BLOOD COUNT (AUTO) 9.7 K/uL (3.8-11.8)
[2018-07-04 06:42] LABS: THYROID STIMULATING HORMONE 1.434 mIU/mL (0.358-3.740)
[2018-07-04 06:44] LABS: ALANINE AMINOTRANSFERASE 22 U/L (14-59); ALKALINE PHOSPHATASE 55 U/L (50-136); ASPARTATE AMINOTRANSFERASE 30 U/L (15-37); BILIRUBIN,TOTAL 0.3 mg/dL (0.2-1.0); CARBON DIOXIDE 34 mmol/L (21-32); CHLORIDE 102 mmol/L (98-107); CHOLESTEROL 203 mg/dL (<200); CREATININE 0.9 mg/dL (0.6-1.3); GLUCOSE 95 mg/dL (74-106); HDL CHOLESTEROL 56 mg/dL (40-60); MAGNESIUM 1.8 mg/dL (1.8-2.4); PHOSPHOROUS 3.8 mg/dL (2.5-4.9); POTASSIUM 4.2 mmol/L (3.5-5.1); TOTAL PROTEIN, SERUM 6.8 g/dL (6.4-8.2); TRIGLYCERIDES 125 MG/DL (30-150); UREA NITROGEN, BLOOD 20 mg/dL (7-18)
--- NOTE | 2018-07-04 06:48 | NUR ---
Asleep but arouse to verbal and tactile stimuli. In no acute distress. No signs or symptoms of pain or SOB. On O2 at 2LPMM via NC in place. O2 sat at 99%. IV site on left AC intact and patent. NSR on tele at 62/min. Safety measure maintained and call last within reach.
--- NOTE | 2018-07-04 07:00 | NUR ---
Patient is sleeping, no distress, safety reinforced
[2018-07-04] MEDS: ACIDOPHILUS/BULGARICUS CHEW TAB PO SCH ×2 (09:11→20:38)
[2018-07-04] MEDS: ASPIRIN 81 MG TAB.CHEW PO SCH (09:12)
[2018-07-04] MEDS: SERTRALINE HCL 50 MG TABLET PO SCH (09:12)
[2018-07-04] MEDS: CHOLECALCIFEROL 1,000 UNIT TABLET PO SCH (09:12)
[2018-07-04] MEDS: FAMOTIDINE 20 MG TABLET PO SCH (09:12)
[2018-07-04 12:00] VITALS: BP 115/59
[2018-07-04 16:00] VITALS: BP 116/59
[2018-07-04] MEDS: CEFTRIAXONE 1 G in IV DEXTROSE 5% 50 ML IV SCH (16:50)
--- NOTE | 2018-07-04 18:51 | NUR ---
Patient is AAO 1-2, no distress, no stroke symptoms, mri showed no acute change, safety maintained
--- NOTE | 2018-07-04 19:20 | NUR ---
RECEIVED PT AWAKE, ALERT AND ORIENTEDX3. PT SHOWS NO SIGNS OF ACUTE DISTRESS. IV INTACT. SAFETY AND COMFORT PROVIDED. WILL CONTINUE TO MONITOR.
[2018-07-04 19:42] VITALS: BP 123/68
[2018-07-04] MEDS: ATORVASTATIN 40 MG TABLET PO SCH (20:38)
[2018-07-04] MEDS: SENNOSIDES 1 TABLET PO SCH (20:38)
[2018-07-04 23:37] VITALS: BP 116/67
[2018-07-05 03:52] VITALS: BP 123/61
[2018-07-05] MEDS: LEVOTHYROXINE SODIUM 50 MCG TABLET PO SCH (06:09)
--- NOTE | 2018-07-05 06:27 | NUR ---
PT SLEPT THROUGHOUT THE SHIFT. PT SHOWS NO SIGNS OF ACUTE DISTRESS. IV INTACT. SAFETY AND COMFORT PROVIDED.PT COMPLIANT WITH CARE. ALL NEEDS ARE MET.PRESCRIBED MEDICATION GIVEN AND PT TOLERATED IT WELL. WILL ENDORSE ACCORDINGLY TO INCOMING NURSE FOR CONTINUITY OF CARE.
[2018-07-05 06:39] LABS: BASOPHILS # (AUTO) 0.1 K/uL (0.0-8.0); BASOPHILS % (AUTO) 1.1 % (0.0-2.0); EOSINOPHILS # (AUTO) 0.3 K/uL (0.0-0.7); EOSINOPHILS % (AUTO) 3.8 % (0.0-7.0); HEMATOCRIT 40.6 % (31.2-41.9); HEMOGLOBIN 13.7 g/dL (10.9-14.3); MEAN CORPUSCULAR HEMOGLOBIN 30.7 uug (24.7-32.8); MEAN CORPUSCULAR HGB CONC 34 g/dL (32.3-35.6); MEAN CORPUSCULAR VOLUME 91.4 fL (75.5-95.3); MONOCYTES # (AUTO) 0.8 K/uL (2.0-10.0); MONOCYTES % (AUTO) 8.6 % (0.0-11.0); NEUTROPHILS # (AUTO) 5.6 K/uL (1.8-8.9); NEUTROPHILS % (AUTO) 63.5 % (38.5-71.5); PLATELET COUNT (AUTO) 193 K/uL (179-408); RED BLOOD CELL COUNT(AUTO) 4.45 MIL/uL (3.63-4.92); WHITE BLOOD COUNT (AUTO) 8.9 K/uL (3.8-11.8)
--- NOTE | 2018-07-05 07:00 | NUR ---
PATIENT IS SLEEPING IN BED, NO DISTRESS AT THE MOMENT, HEARING PRODUCTIVE COUGH, WILL ADDRESS TO MD SAFETY REINFORCED, CONT CARE
[2018-07-05 07:30] LABS: ALANINE AMINOTRANSFERASE 22 U/L (14-59); ALKALINE PHOSPHATASE 57 U/L (50-136); ASPARTATE AMINOTRANSFERASE 32 U/L (15-37); BILIRUBIN,TOTAL 0.3 mg/dL (0.2-1.0); CARBON DIOXIDE 30 mmol/L (21-32); CHLORIDE 103 mmol/L (98-107); CREATININE 0.8 mg/dL (0.6-1.3); GLUCOSE 101 mg/dL (74-106); MAGNESIUM 1.9 mg/dL (1.8-2.4); PHOSPHOROUS 3.4 mg/dL (2.5-4.9); POTASSIUM 3.9 mmol/L (3.5-5.1); TOTAL PROTEIN, SERUM 6.9 g/dL (6.4-8.2); UREA NITROGEN, BLOOD 18 mg/dL (7-18)
[2018-07-05] MEDS: SERTRALINE HCL 50 MG TABLET PO SCH (08:31)
[2018-07-05] MEDS: CHOLECALCIFEROL 1,000 UNIT TABLET PO SCH (08:31)
[2018-07-05] MEDS: ACIDOPHILUS/BULGARICUS CHEW TAB PO SCH ×2 (08:31→20:54)
[2018-07-05] MEDS: FAMOTIDINE 20 MG TABLET PO SCH (08:31)
[2018-07-05] MEDS ORDERED: Z GUARD REMEDY PASTE 57 GM TUBE TOP PRN (10:45)
[2018-07-05 11:30] VITALS: BP 108/60
[2018-07-05 15:13] VITALS: BP 120/63
[2018-07-05] MEDS: CEFTRIAXONE 1 G in IV DEXTROSE 5% 50 ML IV SCH (17:14)
[2018-07-05] MEDS: RIVAROXABAN 10 MG TABLET PO SCH (18:27)
--- NOTE | 2018-07-05 18:33 | NUR ---
PATIENT IS AAO1-2, NO DISTRESS DURING SHIFT , XRAYS WERE DONE, SAFETY MAINTAINED
[2018-07-05 20:00] VITALS: BP 116/62
[2018-07-05] MEDS: SENNOSIDES 1 TABLET PO SCH (20:54)
[2018-07-05] MEDS: GUAIFENESIN/DEXTROMETHORPHAN 5 ML UDC PO PRN (20:54)
[2018-07-05] MEDS: ATORVASTATIN 40 MG TABLET PO SCH (20:55)
[2018-07-05 23:39] VITALS: BP 144/70
[2018-07-06 03:30] VITALS: BP 138/65
[2018-07-06] MEDS: LEVOTHYROXINE SODIUM 50 MCG TABLET PO SCH (06:17)
--- NOTE | 2018-07-06 06:33 | NUR ---
END OF SHIFT REPORT PAtient slept in between care; more alert and able to make needs known; assisted to meet hygiene needs; Dr Andrews ordered CXR last night and result is in; cough medication given to pt as well; continue to monitor; continue plan of care.
--- NOTE | 2018-07-06 08:00 | NUR ---
RECEIVED PATIENT IN BED AWAKE ALERT AND COOPERATIVE DENIES PAIN OR DISCOMFORTS AT THIS TIME REMAIN ON ROOM AIR WITH NO SHORTNESS OF BREATH HAS OCASSIONAL COUGH BUT STATED DOES NOT NEED COUGH MEDICATIONS AT THIS TIME.CALL LIGHTS AND PERSONAL BELONGINGS ARE WITHIN EASY REACH AND WILL CONTINUE TO OBSERVE AND PROVIDE SAFE AND THERAPEUTIC ENVIRONMENT AT ALL TIMES.
[2018-07-06] MEDS: SERTRALINE HCL 50 MG TABLET PO SCH (08:18)
[2018-07-06] MEDS: CHOLECALCIFEROL 1,000 UNIT TABLET PO SCH (08:18)
[2018-07-06] MEDS: FAMOTIDINE 20 MG TABLET PO SCH (08:18)
[2018-07-06] MEDS: ACIDOPHILUS/BULGARICUS CHEW TAB PO SCH ×2 (08:18→20:32)
[2018-07-06] MEDS: CEphaleXIN 500 MG CAPSULE PO SCH ×2 (08:19→20:31)
[2018-07-06 11:20] VITALS: BP 123/55
[2018-07-06] MEDS ORDERED: FUROSEMIDE 20 MG/2 ML VIAL IV ONE (13:15)
[2018-07-06 15:16] VITALS: BP 114/64
[2018-07-06] MEDS: RIVAROXABAN 10 MG TABLET PO SCH (17:13)
--- NOTE | 2018-07-06 17:30 | NUR ---
PATIENT SEEN BY DR ELDER WITH NEW ORDERS AND NOTED.
[2018-07-06 20:21] VITALS: BP 119/74
[2018-07-06] MEDS: GUAIFENESIN/DEXTROMETHORPHAN 5 ML UDC PO PRN (20:30)
[2018-07-06] MEDS: SENNOSIDES 1 TABLET PO SCH (20:31)
[2018-07-06] MEDS: ATORVASTATIN 40 MG TABLET PO SCH (20:31)
[2018-07-06] MEDS: Z GUARD REMEDY PASTE 57 GM TUBE TOP SCH (20:33)
[2018-07-07 00:53] VITALS: BP 120/65
[2018-07-07 04:00] VITALS: BP 122/72
[2018-07-07] MEDS: LEVOTHYROXINE SODIUM 50 MCG TABLET PO SCH (05:57)
--- NOTE | 2018-07-07 07:45 | NUR ---
AWAKE ALERT AND ORIENTED DENIES PAIN OR DISCOMFORTS AT THIS TIME REMAIN ON ROOM AIR WITH NO SHORTNESS OF BREATH AT THIS TIME PATIENT HAS ADEQUATE CIRCULATION TO HER UPPER AND LOWER EXTREMITIES AT THIS TIME MADE COMFORTABLE AND WILL CONTINUE TO OBSERVE.
[2018-07-07 08:04] LABS: BASOPHILS # (AUTO) 0.1 K/uL (0.0-8.0); MEAN CORPUSCULAR HGB CONC 34 g/dL (32.3-35.6)
[2018-07-07 08:12] LABS: BASOPHILS % (AUTO) 1.1 % (0.0-2.0); EOSINOPHILS # (AUTO) 0.3 K/uL (0.0-0.7); EOSINOPHILS % (AUTO) 3.5 % (0.0-7.0); LYMPHOCYTES # (AUTO) 2.2 K/uL (20.0-40.0); LYMPHOCYTES % (AUTO) 22.5 % (20.5-51.5); MEAN CORPUSCULAR HEMOGLOBIN 30.4 uug (24.7-32.8); MEAN CORPUSCULAR VOLUME 90.1 fL (75.5-95.3); MONOCYTES % (AUTO) 9.8 % (0.0-11.0); NEUTROPHILS # (AUTO) 6.3 K/uL (1.8-8.9); NEUTROPHILS % (AUTO) 63.1 % (38.5-71.5); PLATELET COUNT (AUTO) 213 K/uL (179-408); RED BLOOD CELL COUNT(AUTO) 4.99 MIL/uL (3.63-4.92)
[2018-07-07 08:15] LABS: ALANINE AMINOTRANSFERASE 20 U/L (14-59); ALKALINE PHOSPHATASE 61 U/L (50-136); ASPARTATE AMINOTRANSFERASE 33 U/L (15-37); BILIRUBIN,TOTAL 0.5 mg/dL (0.2-1.0); CARBON DIOXIDE 32 mmol/L (21-32); CHLORIDE 101 mmol/L (98-107); CREATININE 0.9 mg/dL (0.6-1.3); GLUCOSE 121 mg/dL (74-106); MAGNESIUM 1.9 mg/dL (1.8-2.4); PHOSPHOROUS 3.4 mg/dL (2.5-4.9); POTASSIUM 3.9 mmol/L (3.5-5.1); TOTAL PROTEIN, SERUM 7.7 g/dL (6.4-8.2); UREA NITROGEN, BLOOD 22 mg/dL (7-18)
[2018-07-07 08:16] LABS: HEMATOCRIT 44.9 % (31.2-41.9); HEMOGLOBIN 15.1 g/dL (10.9-14.3)
[2018-07-07] MEDS: FAMOTIDINE 20 MG TABLET PO SCH (08:53)
[2018-07-07] MEDS: CHOLECALCIFEROL 1,000 UNIT TABLET PO SCH (08:53)
[2018-07-07] MEDS: ACIDOPHILUS/BULGARICUS CHEW TAB PO SCH ×2 (08:53→20:25)
[2018-07-07] MEDS: CEphaleXIN 500 MG CAPSULE PO SCH ×2 (08:53→20:25)
[2018-07-07] MEDS: SERTRALINE HCL 50 MG TABLET PO SCH (08:53)
[2018-07-07] MEDS: Z GUARD REMEDY PASTE 57 GM TUBE TOP SCH ×2 (08:55→20:26)
[2018-07-07 11:29] VITALS: BP 114/64
--- NOTE | 2018-07-07 14:35 | NUR ---
PER THE ADMINISTRATIVE FELLOW PATIENT WILL BE DISCHARGED BACK TO THE [facility] FOR THE AGING TODAY AWAITING FOR DISCHARGE ORDERS FROM DR ELDER.
[2018-07-07 15:58] VITALS: BP 136/80
[2018-07-07] MEDS: RIVAROXABAN 10 MG TABLET PO SCH (17:12)
[2018-07-07] MEDS ORDERED: MENT71OI TOP (17:51)
[2018-07-07] MEDS ORDERED: CEPH500C2 PO (17:51)
[2018-07-07] MEDS ORDERED: ATOR10TA PO (17:53)
--- NOTE | 2018-07-07 18:38 | NUR ---
CALLED THE [facility] AND REPORT GIVEN TO RUBIA FOR CONTINUING CARE PATIENT WILL BE PICKED UP BY THE AMBULANCE THIS EVENING ABOUT 2030
--- NOTE | 2018-07-07 20:00 | NUR ---
RECEIVED PATIENT AWAKE IN BED. WAITING FOR AMBULANCE PICK-UP. PATIENT IS SLOVENIAN SPEAKING BUT ALBE TO MAKE SIMPLE NEEDS KNOWN. DENIES PAIN. VSS. WILL CONTINUE TO MONITOR AND ASSESS.
[2018-07-07] MEDS: SENNOSIDES 1 TABLET PO SCH (20:25)
[2018-07-07] MEDS: ATORVASTATIN 40 MG TABLET PO SCH (20:26)
[2018-07-07 20:32] VITALS: BP 137/81
--- NOTE | 2018-07-07 20:45 | NUR ---
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 VSS. PATIENT LEFT FACILITY IN STABLE CONDITION.
== END 2018-07-07 20:45 | DRG 64 ==
LOC: ER 11:54 → TELE3 14:12 → MEDSURG3 07-07 15:19
PROVIDERS: ADMIT Internal Medicine; ATTEND Internal Medicine
DX: I63.9 Cerebral infarction, unspecified (principal); A41.9 Sepsis, unspecified organism; G92 Toxic encephalopathy; E43 Unspecified severe protein-calorie malnutrition; I21.A1 Myocardial infarction type 2; R65.20 Severe sepsis without septic shock; N39.0 Urinary tract infection, site not specified; D68.59 Other primary thrombophilia; R20.0 Anesthesia of skin; B96.20 Unspecified Escherichia coli [E. coli] as the cause of diseases classified elsewhere; J20.8 Acute bronchitis due to other specified organisms; G30.9 Alzheimer's disease, unspecified; F02.80 Dementia in other diseases classified elsewhere, unspecified severity, without behavioral disturbance, psychotic disturbance, mood disturbance, and anxiety; Z68.33 Body mass index [BMI] 33.0-33.9, adult; I69.319 Unspecified symptoms and signs involving cognitive functions following cerebral infarction; F01.50 Vascular dementia, unspecified severity, without behavioral disturbance, psychotic disturbance, mood disturbance, and anxiety; E66.9 Obesity, unspecified; I48.0 Paroxysmal atrial fibrillation; I08.3 Combined rheumatic disorders of mitral, aortic and tricuspid valves; I25.10 Atherosclerotic heart disease of native coronary artery without angina pectoris; K59.00 Constipation, unspecified; Z96.653 Presence of artificial knee joint, bilateral; Z87.01 Personal history of pneumonia (recurrent); Z79.01 Long term (current) use of anticoagulants; R29.704 NIHSS score 4; I11.0 Hypertensive heart disease with heart failure; I50.9 Heart failure, unspecified; E78.5 Hyperlipidemia, unspecified; F32.9 Major depressive disorder, single episode, unspecified
CPT/HCPCS: 36415; 70030-TC; 70450; 70496; 70551; 71045; 80307; 83690; 83735; 84100; 84443; 85025; 85651; 85730; 86592; 87077; 87086; 92526; 92610; 93005; 93307; 97110; 97112; 97116; 97165; 97530; A4663; C1758; G0378; J0696; J1170; J1200; J1940; J2060; J2405; J3490; J7040; J7050; J7060; Q9967

== ENCOUNTER 2019-01-03 00:28 | Inpatient (IN) | payer MEDICARE, MEDICAID ==
[~2019-01-03] VITALS: Ht 167.6 cm; Wt 86.2 kg
[~2019-01-03 00:28] MED LIST changes: +ACET-73 PO; -ACET325T53 PO; +ACID1TAB12 PO; -ALBU2.5V7 NEB; +ATOR10TA PO; +BISA10SU61 RC; +CEPH500C2 PO; +CHOL100045 PO; +DEXT15DR6 EACHEYE; +DONE10TA11 PO; -FAMO-132 PO; +FAMO20TA8 PO; -LACT1CAP57 PO; +LEVO50TA8 PO; +OLOP5DRO EACHEYE; -PROT946L PO; -QUET25TA34 PO; -ROBITUSSIN DM PO; +SENN-168 PO; +SERT25TA PO; -VANC500V PO
[2019-01-03] MEDS ORDERED: ONDANSETRON 4 MG/2 ML VIAL IV ONE (03:00)
[2019-01-03] MEDS ORDERED: IV NORMAL SALINE 1000 ML BAG IV ONE (03:00)
[2019-01-03] MEDS ORDERED: MORPHINE SULFATE 2 MG/1 ML DISP.SYRIN IV ONE (03:00)
[2019-01-03] MEDS ORDERED: ONDANSETRON 4 MG/2 ML VIAL ONE (03:17)
[2019-01-03] MEDS ORDERED: MORPHINE SULFATE 4 MG/1 ML DISP.SYRIN ONE ×2 (03:17→05:36)
[2019-01-03 03:19] LABS: BASOPHILS # (AUTO) 0.1 K/uL (0.0-8.0); EOSINOPHILS # (AUTO) 0.1 K/uL (0.0-0.7); EOSINOPHILS % (AUTO) 1.3 % (0.0-7.0); HEMOGLOBIN 13.4 g/dL (10.9-14.3); LYMPHOCYTES # (AUTO) 1.2 K/uL (20.0-40.0); LYMPHOCYTES % (AUTO) 15.9 % (20.5-51.5); MEAN CORPUSCULAR HEMOGLOBIN 30.6 uug (24.7-32.8); MEAN CORPUSCULAR HGB CONC 35 g/dL (32.3-35.6); MEAN CORPUSCULAR VOLUME 88.7 fL (75.5-95.3); MONOCYTES # (AUTO) 0.9 K/uL (2.0-10.0); MONOCYTES % (AUTO) 11.4 % (0.0-11.0); NEUTROPHILS # (AUTO) 5.3 K/uL (1.8-8.9); NEUTROPHILS % (AUTO) 70.4 % (38.5-71.5); PLATELET COUNT (AUTO) 207 K/uL (179-408); RED BLOOD CELL COUNT(AUTO) 4.39 MIL/uL (3.63-4.92); WHITE BLOOD COUNT (AUTO) 7.6 K/uL (3.8-11.8)
--- NOTE | 2019-01-03 03:28 | NUR ---
patient taken down for CT.
[2019-01-03 03:32] LABS: BILIRUBIN,DIRECT 2.4 mg/dL (0.0-0.2); BILIRUBIN,TOTAL 2.7 mg/dL (0.2-1.0); CREATININE 0.9 mg/dL (0.6-1.3); POTASSIUM 3.7 mmol/L (3.5-5.1); TOTAL PROTEIN, SERUM 7.2 g/dL (6.4-8.2)
--- NOTE | 2019-01-03 04:02 | NUR ---
PATIENT BACK FROM CT.
[2019-01-03] MEDS ORDERED: MORPHINE SULFATE 2 MG/1 ML DISP.SYRIN IV PRN (05:15)
[2019-01-03] MEDS ORDERED: HYDROCODONE/APAP 5-325MG TABLET PO PRN (05:15)
[2019-01-03] MEDS ORDERED: ONDANSETRON 4 MG/2 ML VIAL IV PRN (05:15)
[2019-01-03] MEDS ORDERED: ACETAMINOPHEN 325 MG TABLET PO PRN (05:15)
[2019-01-03] MEDS ORDERED: ACETAMINOPHEN ES 500 MG TABLET PO PRN (05:15)
[2019-01-03] MEDS ORDERED: Z GUARD REMEDY PASTE 57 GM TUBE TOP PRN (05:15)
[2019-01-03] MEDS ORDERED: IV NS 1000 ML 1,000 ML IV SCH (05:15)
[2019-01-03] MEDS ORDERED: MAGNESIUM HYDROXIDE 30 ML LIQUID UDC PO PRN (05:15)
[2019-01-03] MEDS ORDERED: MORPHINE SULFATE 4 MG/1 ML DISP.SYRIN IV ONE (05:30)
--- NOTE | 2019-01-03 05:30 | NUR ---
Report given to Hanna TORRES.
--- NOTE | 2019-01-03 06:08 | NUR ---
corona catheter order cancelled per
--- NOTE | 2019-01-03 06:25 | NUR ---
patient transferred to [facility].
[2019-01-03 06:39] VITALS: BP 135/105
--- NOTE | 2019-01-03 07:00 | NUR ---
RECEIVED PATIENT IN BED AT THE BEGINNING OF MY SHIFT PATIENT WAS APPARENTLY RECEIVED ON PREVIOUS SHIFT SHE IS AWAKE ALERT AND AWARE WITH SOME SLOVENIAN WITH PRIMARY LANGUAGE OF MARTINIQUAIS NO S/S OF PAIN OR DISCOMFORTS AT THIS TIME.SHE IS ON O2 WITH ADEQUATE SATS SO O2 REMOVED AT THIS TIME AND WILL OBSERVE.ORIENTED TO ROOM AND PERSONAL BELONGINGS AWARE THAT PATIENT IS HERE AWAITING FOR ORDERS.
[2019-01-03] MEDS: FAMOTIDINE 20 MG TABLET PO SCH (08:59)
[2019-01-03] MEDS: LEVOTHYROXINE SODIUM 50 MCG TABLET PO SCH (08:59)
[2019-01-03] MEDS ORDERED: [UNRECOGNIZED DRUG - REMARK] PO SCH (09:00)
[2019-01-03] MEDS ORDERED: OLOPATADINE 0.1% OPHT DROP 5 ML BOTTLE EACHEYE SCH ×2 (09:00)
[2019-01-03] MEDS ORDERED: Medication Not On Formulary EA (Acidophilus/Bulgaricus (Floranex Tablet) 1 EACH) PO SCH (09:00)
[2019-01-03] MEDS ORDERED: Medication Not On Formulary EA (Sertraline Hcl (Zoloft) 1 TAB) PO SCH (09:00)
[2019-01-03] MEDS: SERTRALINE HCL 50 MG TABLET PO SCH (09:10)
[2019-01-03] MEDS: MULTIVIT, IRON, MIN NO. 8, FA TABLET PO SCH (09:10)
[2019-01-03] MEDS: CHOLECALCIFEROL 1,000 UNIT TABLET PO SCH (09:10)
[2019-01-03] MEDS: ACIDOPHILUS/BULGARICUS CHEW TAB PO SCH ×2 (09:10→20:27)
[2019-01-03] MEDS: Z GUARD REMEDY PASTE 57 GM TUBE TOP SCH ×2 (09:21→20:28)
[2019-01-03] MEDS ORDERED: Z GUARD REMEDY PASTE 57 GM TUBE TOP SCH (10:00)
[2019-01-03 11:01] VITALS: BP 109/53
--- NOTE | 2019-01-03 12:55 | NUR ---
PATIENT IS NPO EXCEPT MEDICATIONS TOLERATED HER ORAL MEDS WITH SIPS OF WATER ORDERED REMAIN ON IVF WITH NO S/S OF INFILTERATION ON SITE MADE COMFORTABLE AND WILL CONTINUE TO OBSERVE.
[2019-01-03] MEDS ORDERED: IV NS 1000 ML 1,000 ML IV PRN (12:57)
--- NOTE | 2019-01-03 15:16 | NUR ---
CALLED DR MEJIA THROUGH THE [facility] RE PATIENT HAS NOT BEEN SEEN TODAY STILL NPO AND IS ANXIOUS TO AT LEAST DRINK WATER SPOKE WITH JOHNSON ALMEIDA MD NOT AVAILABLE BY PHONE BUT WILL RELAY THIS MESSAGE TO HIM.
[2019-01-03 15:18] VITALS: BP 106/40
--- NOTE | 2019-01-03 15:32 | NUR ---
CALL RECEIVED FROM DR MEJIA STATED WAS NEVER NOTIFIED OF THE GI CONSULT STATED TO GO AHEAD AND FEED THE PATIENT CLEAR LIQUIDS DIET AND NOTED
[2019-01-03] MEDS ORDERED: FUROSEMIDE 20 MG/2 ML VIAL IV ONE (16:00)
[2019-01-03] MEDS ORDERED: RIVAROXABAN 10 MG TABLET PO SCH (17:00)
[2019-01-03] MEDS: POLYVINYL ALCOHOL OPHT DROPS 15 ML BOTTLE EACHEYE SCH ×2 (17:26→20:26)
--- NOTE | 2019-01-03 18:00 | NUR ---
SPOKE WITH DR ELDER AWARE OF DR LOPEZ ORDERS STATED THAT HE ALSO SPOKE WITH HIM.
[2019-01-03] MEDS: POTASSIUM CHLORIDE 20 MEQ in IV D5/ 0.9% NACL 1,000 ML IV PRN (18:10)
--- NOTE | 2019-01-03 19:35 | NUR ---
Received patient awake, sitting up on bed, alert and oriented x 3 but mainly Comoran speaking. Not in distress at the moment, no complaints made. With oxygen support at 3lpm via nasal cannula, maintained. Maintained on clear liquid as ordered by Dr. Jaimes. With IV access on the right AC to ongoing IV fluid with potassium, infusing well. Will monitor for recurrence of abdominal pain. Bed in low position, locked, side rails up x 2 for safety, call light within reach.
[2019-01-03 19:56] VITALS: BP 112/50
[2019-01-03] MEDS: DONEPEZIL 10 MG TABLET PO SCH (20:27)
[2019-01-03] MEDS: ATORVASTATIN 10 MG TABLET PO SCH (20:27)
[2019-01-03] MEDS: SENNOSIDES 1 TABLET PO SCH (20:27)
[2019-01-04 04:40] VITALS: BP 110/50
--- NOTE | 2019-01-04 05:45 | NUR ---
Patient maintained NPO after midnight for possible MRCP without contrast this morning as ordered by Dr. Jaimes. Patient has history of dementia, hence obtained telephone verbal consent from next of kin who is Quentin, patient's grandson, able to obtain a little bit of patient's medical history from grandson. Patient made aware of the possible procedure, per patient she has no metal implants on her body. Turned to sides. Attended all needs. Ensured safety and comfort.
[2019-01-04 06:22] LABS: BASOPHILS # (AUTO) 0.1 K/uL (0.0-8.0); BASOPHILS % (AUTO) 0.9 % (0.0-2.0); EOSINOPHILS # (AUTO) 0.1 K/uL (0.0-0.7); LYMPHOCYTES # (AUTO) 1.3 K/uL (20.0-40.0); MEAN CORPUSCULAR HEMOGLOBIN 30.4 uug (24.7-32.8); MEAN CORPUSCULAR HGB CONC 33 g/dL (32.3-35.6); MEAN CORPUSCULAR VOLUME 91.4 fL (75.5-95.3); MONOCYTES # (AUTO) 0.9 K/uL (2.0-10.0); MONOCYTES % (AUTO) 14.1 % (0.0-11.0); NEUTROPHILS # (AUTO) 4.1 K/uL (1.8-8.9); PLATELET COUNT (AUTO) 177 K/uL (179-408); RED BLOOD CELL COUNT(AUTO) 3.94 MIL/uL (3.63-4.92); WHITE BLOOD COUNT (AUTO) 6.4 K/uL (3.8-11.8)
[2019-01-04 06:43] LABS: BILIRUBIN,TOTAL 4.3 mg/dL (0.2-1.0); CREATININE 0.9 mg/dL (0.6-1.3); MAGNESIUM 1.6 mg/dL (1.8-2.4); PHOSPHOROUS 2.8 mg/dL (2.5-4.9); POTASSIUM 3.5 mmol/L (3.5-5.1); TOTAL PROTEIN, SERUM 6.2 g/dL (6.4-8.2)
[2019-01-04] MEDS: LEVOTHYROXINE SODIUM 50 MCG TABLET PO SCH ×2 (06:46→09:52)
--- NOTE | 2019-01-04 07:19 | NUR ---
PATIENT RECEIVED AWAKE ALERT AND AWARE WITH LANGUAGE PROBLEMS BUT SOME SYRIAN AND ABLE TO RELAY SIMPLE NEEDS.PATIENT IS NPO AT THIS TIME SCHEDULED FOR MRCP THIS AM AT [facility].REMAIN ON IVF ORDERED WITH NO S/S OF INFILTERATION ON SITE MADE COMFORTABLE AND WILL CONTINUE TO OBSERVE.
--- NOTE | 2019-01-04 08:30 | NUR ---
PATIENT PICKED UP BY THE AMBULANCE FOR MRCP IN [place] ORDERED.
[2019-01-04] MEDS ORDERED: OLOPATADINE 0.1% OPHT DROP 5 ML BOTTLE EACHEYE SCH (09:00)
--- NOTE | 2019-01-04 09:25 | NUR ---
CALL RECEIVED FROM BLU AT [facility] STATED WAS UNABLE TO DO THE MRCP NDUE TO PATIENT WAS VERY COMBATIVE KICKING AND SCRATCHING THE TECHS UNABLE TO REDIRECT AND PATIENT IS ON ROUTE [address] HERE WE SPEAK.
[2019-01-04] MEDS: POTASSIUM CHLORIDE 20 MEQ in IV D5/ 0.9% NACL 1,000 ML IV PRN (09:49)
[2019-01-04] MEDS: POLYVINYL ALCOHOL OPHT DROPS 15 ML BOTTLE EACHEYE SCH ×4 (09:50→21:28)
[2019-01-04] MEDS: ACIDOPHILUS/BULGARICUS CHEW TAB PO SCH ×2 (09:52→21:01)
[2019-01-04] MEDS: MULTIVIT, IRON, MIN NO. 8, FA TABLET PO SCH (09:52)
[2019-01-04] MEDS: FAMOTIDINE 20 MG TABLET PO SCH (09:52)
[2019-01-04] MEDS: SERTRALINE HCL 50 MG TABLET PO SCH (09:52)
[2019-01-04] MEDS: CHOLECALCIFEROL 1,000 UNIT TABLET PO SCH (09:52)
[2019-01-04] MEDS: Z GUARD REMEDY PASTE 57 GM TUBE TOP SCH ×2 (09:53→21:27)
--- NOTE | 2019-01-04 10:05 | NUR ---
ATIENT RETURNED BACK TO HER BED SHE IS QUIET CALM UNABLE TO REOLATE WHY SHE WAS UNCOOPERATIVE MADE COMFORTABLE WILL INFORM THE DOCOTR FOR MAY BE RESCHEDULE AND ATTEMPT A SEDATIVE AND HAVE HER FAMILY MEMBERS PRESENT.
--- NOTE | 2019-01-04 10:22 | NUR ---
MAGNESIUM LEVEL IS 1.6 WITH NEW ORDERS FROM DR ELDER AND CARRIED OUT.
[2019-01-04] MEDS: MAGNESIUM SULFATE/D5W 100 ML IV SCH ×2 (10:36→11:39)
--- NOTE | 2019-01-04 10:47 | NUR ---
MRCP: PATIENT WAS COMBATIVE UNABLE TO DO MRCP.IF NEEDED IF PLEASE RESCHEDULE CALL(TWIN) [phone], FOR TOMORROW AM, PATIENT HAS TO BE NPO 4 HRS BEFORE EXAM.
[2019-01-04 11:10] VITALS: BP 104/47
--- NOTE | 2019-01-04 11:27 | NUR ---
DR ELDER AWARE THAT MRCP WAS NOT DUE TO THE FACT THAT PATIENT WAS UNCOOPERATIVE AND COMBATIVE WITH NO NEW ORDERS AT THIS TIME.
--- NOTE | 2019-01-04 14:33 | NUR ---
DR MEJIA AND DR ELDER HERE AND SEEN PATIENT SO THE PLAN IS THAT MRCP WILL BE RESCHEDULED FOR TOMORROW AND HER GRANDSON WILL BE PRESENT TO ASSIST WITH CALMING HER DOWN AND DR WHEAT STATED WILL ALSO ORDER SOMETHING TO ASSIST WITH CALMING HER DOWN.AND PER THE LOOM OPERATOR APPRENTICE WILL AWAIT FOR THE RADIOLOGY DEPT TO CONFIRM WHAT TIME PATIME WILL GO FOR THE MRCP.
[2019-01-04 15:32] VITALS: BP 114/51
--- NOTE | 2019-01-04 16:30 | NUR ---
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
--- NOTE | 2019-01-04 18:00 | NUR ---
REMAIN ON ISOLATION AT THIS TIME NO SHORTNESS OF BREATH DENIES DISCOMFORTS WILL CONTINUE TO OBSERVE
--- NOTE | 2019-01-04 19:30 | NUR ---
Received patient in bed AAOx2. No SOB noted, not in distress. IV site on R AC intact and patent w/ IVF infusing. Continue on contact isolation for MRSA nares. Safety measures observed. Call light within reach
[2019-01-04 20:31] VITALS: BP 131/62
[2019-01-04] MEDS: ATORVASTATIN 10 MG TABLET PO SCH (21:01)
[2019-01-04] MEDS: DONEPEZIL 10 MG TABLET PO SCH (21:01)
[2019-01-04] MEDS: SENNOSIDES 1 TABLET PO SCH (21:01)
[2019-01-04] MEDS: MUPIROCIN 2% OINT 22 GM TUBE NS SCH (21:27)
[2019-01-04] MEDS ORDERED: LORAZEPAM 0.5 MG TABLET PO PRN (23:45)
[2019-01-05] MEDS: POTASSIUM CHLORIDE 20 MEQ in IV D5/ 0.9% NACL 1,000 ML IV PRN ×2 (02:48→19:48)
[2019-01-05 05:27] VITALS: BP 124/52
--- NOTE | 2019-01-05 07:29 | NUR ---
Patient slept well intermittently. No complaints of pain. Not in distress at this time. All needs attended. Will endorse accordingly
--- NOTE | 2019-01-05 07:45 | NUR ---
CALLED THE MRI COMPANY AT [facility] TO INQUIRE WHEN THE MRCP WILL BE DONE TODAY SPOKE WITH TWIN AND HE STATED WILL CALL ME BACK AFTER HE CONFIRMS WITH THE TECH.
--- NOTE | 2019-01-05 08:00 | NUR ---
CALL RECEIVED FROM [facility] STATED THR TECH WILL BE AVAILABLE FROM [phone] SO I CALLED PATIENTS SON COMFORT AND HE STATED WILL BE ABLE TO GO TO THE MRI CENTER AT THE STATED TIME.
[2019-01-05] MEDS: POLYVINYL ALCOHOL OPHT DROPS 15 ML BOTTLE EACHEYE SCH ×4 (08:45→21:14)
[2019-01-05] MEDS: MUPIROCIN 2% OINT 22 GM TUBE NS SCH ×2 (08:46→21:14)
[2019-01-05] MEDS: Z GUARD REMEDY PASTE 57 GM TUBE TOP SCH ×2 (08:46→21:15)
[2019-01-05] MEDS: FAMOTIDINE 20 MG TABLET PO SCH (08:47)
[2019-01-05] MEDS: ACIDOPHILUS/BULGARICUS CHEW TAB PO SCH ×2 (08:47→21:15)
[2019-01-05] MEDS: MULTIVIT, IRON, MIN NO. 8, FA TABLET PO SCH (08:47)
[2019-01-05] MEDS: SERTRALINE HCL 50 MG TABLET PO SCH (08:48)
[2019-01-05] MEDS: CHOLECALCIFEROL 1,000 UNIT TABLET PO SCH (08:48)
--- NOTE | 2019-01-05 08:58 | NUR ---
CALLED BACK TWIN AND CONFIRMED WITH HIM THAT THE PATIENTS SON IN LAW COMFORT WILL BE ABLE TO GO TO THE [facility] AT THE STATED TIME.PATIENT KEPT NPO FOR THIS TEST.
[2019-01-05] MEDS ORDERED: OLOPATADINE 0.1% OPHT DROP 5 ML BOTTLE EACHEYE SCH (09:00)
--- NOTE | 2019-01-05 09:40 | NUR ---
CALLED AND SPOKE WITH DR ELDER RE CLARIFICATION OF ATIVAN ORDER AND NOTED.
[2019-01-05] MEDS ORDERED: LORAZEPAM 2 MG/1 ML VIAL IV ONE (09:45)
--- NOTE | 2019-01-05 10:16 | NUR ---
ATIVAN GIVEN ORDERED IV PATIENT PREPPED FOR TANSPORT TO [facility].
--- NOTE | 2019-01-05 10:25 | NUR ---
PATIENT PICKED UP BY AMBULANCE FOR MRCP ORDERED PATIENTS SON IN LAW COMFORT AWARE AND WILL MEET THE PATIENT THERE SUGGESTED.
--- NOTE | 2019-01-05 11:45 | NUR ---
PATIENT RETURNED BACK ASLEEP BUT IS AROUSABLE RECONNECTED ON HER IVF MADE COMFORTABLE AND WILL CONTINUE TO OBSERVE.
--- NOTE | 2019-01-05 14:00 | NUR ---
AWAKE ATE HER CLEAR LIQUIDS DIET AND TOLERATED WELL WILL CONTINUE TO OBSERVE.
[2019-01-05 15:06] VITALS: BP 124/82
--- NOTE | 2019-01-05 16:45 | NUR ---
RESTING IN BED ALERT COOPERATIVE NO S/S OF DISCOMFORTS IVF IN PROGRESS ORDERED WITH NO S/S OF INFILTERATION ON SITE MADE COMFORTABLE AND WILL CONTINUE TO OBSERVE.
[2019-01-05 18:26] LABS: BILIRUBIN,DIRECT 3.2 mg/dL (0.0-0.2); BILIRUBIN,TOTAL 3.5 mg/dL (0.2-1.0); TOTAL PROTEIN, SERUM 6.5 g/dL (6.4-8.2)
--- NOTE | 2019-01-05 19:00 | NUR ---
Received patient alert and awake, patient is in no apparent distress, Iv site is intact and patent. VS stable. patient is in no apprent distress at this time. Bed in lowest position, locked, call light within reach. Will continue to monitor.
[2019-01-05 20:00] VITALS: BP 153/71
[2019-01-05] MEDS: SENNOSIDES 1 TABLET PO SCH (21:15)
[2019-01-05] MEDS: DONEPEZIL 10 MG TABLET PO SCH (21:15)
[2019-01-05] MEDS: ATORVASTATIN 10 MG TABLET PO SCH (21:15)
[2019-01-06] MEDS: LEVOTHYROXINE SODIUM 50 MCG TABLET PO SCH (06:04)
[2019-01-06 06:05] VITALS: BP 140/62
--- NOTE | 2019-01-06 06:57 | NUR ---
Patient is alert and awake, slept well last night. Patient is in no distress at this time. No complaints of pain at this time. Bed in lowest position, locked , and call light within reach. Will endorse to AM shift.
--- NOTE | 2019-01-06 07:20 | NUR ---
WAKE ALERT TO SELF WITH LANGUAGE BARRIER ABLE TO MAKE SIMPLE NEEDS KNOWN REMAIN ON IVF WITH NO S/S OF INFILTERATION ON SITE MAX ASSIST FOR ALL ADL ASSISED WITH REPOSITIONING MADE COMFORTABLE AND WILL CONTINUE TO OBSERVE
[2019-01-06 08:13] LABS: ALANINE AMINOTRANSFERASE 117 U/L (14-59); ALKALINE PHOSPHATASE 361 U/L (50-136); ASPARTATE AMINOTRANSFERASE 92 U/L (15-37); BILIRUBIN,TOTAL 3.2 mg/dL (0.2-1.0); CARBON DIOXIDE 26 mmol/L (21-32); CHLORIDE 104 mmol/L (98-107); CREATININE 0.7 mg/dL (0.6-1.3); GLUCOSE 132 mg/dL (74-106); MAGNESIUM 1.6 mg/dL (1.8-2.4); PHOSPHOROUS 2.3 mg/dL (2.5-4.9); POTASSIUM 3.8 mmol/L (3.5-5.1); TOTAL PROTEIN, SERUM 6.6 g/dL (6.4-8.2); UREA NITROGEN, BLOOD 6 mg/dL (7-18)
[2019-01-06 08:23] LABS: BASOPHILS # (AUTO) 0.1 K/uL (0.0-8.0); BASOPHILS % (AUTO) 1.3 % (0.0-2.0); EOSINOPHILS # (AUTO) 0.2 K/uL (0.0-0.7); EOSINOPHILS % (AUTO) 2.6 % (0.0-7.0); HEMOGLOBIN 14.1 g/dL (10.9-14.3); LYMPHOCYTES # (AUTO) 1.2 K/uL (20.0-40.0); LYMPHOCYTES % (AUTO) 17.4 % (20.5-51.5); MEAN CORPUSCULAR HEMOGLOBIN 29.9 uug (24.7-32.8); MEAN CORPUSCULAR HGB CONC 34 g/dL (32.3-35.6); MEAN CORPUSCULAR VOLUME 89.3 fL (75.5-95.3); MONOCYTES # (AUTO) 0.8 K/uL (2.0-10.0); MONOCYTES % (AUTO) 10.9 % (0.0-11.0); NEUTROPHILS # (AUTO) 4.8 K/uL (1.8-8.9); NEUTROPHILS % (AUTO) 67.8 % (38.5-71.5); PLATELET COUNT (AUTO) 209 K/uL (179-408); RED BLOOD CELL COUNT(AUTO) 4.71 MIL/uL (3.63-4.92); WHITE BLOOD COUNT (AUTO) 7.1 K/uL (3.8-11.8)
[2019-01-06] MEDS: CHOLECALCIFEROL 1,000 UNIT TABLET PO SCH (09:04)
[2019-01-06] MEDS: SERTRALINE HCL 50 MG TABLET PO SCH (09:04)
[2019-01-06] MEDS: MULTIVIT, IRON, MIN NO. 8, FA TABLET PO SCH (09:04)
[2019-01-06] MEDS: FAMOTIDINE 20 MG TABLET PO SCH (09:04)
[2019-01-06] MEDS: ACIDOPHILUS/BULGARICUS CHEW TAB PO SCH ×2 (09:04→20:25)
[2019-01-06] MEDS: POLYVINYL ALCOHOL OPHT DROPS 15 ML BOTTLE EACHEYE SCH ×4 (09:06→20:24)
[2019-01-06] MEDS: MUPIROCIN 2% OINT 22 GM TUBE NS SCH ×2 (09:07→20:25)
[2019-01-06] MEDS: Z GUARD REMEDY PASTE 57 GM TUBE TOP SCH ×2 (09:08→20:26)
--- NOTE | 2019-01-06 11:15 | NUR ---
MAGNESSIUM LEVEL IS 1.6 WITH NEW REPLACEMENT ORDER AND NOTED
[2019-01-06 11:30] VITALS: BP 148/78
[2019-01-06] MEDS: MAGNESIUM SULFATE/D5W 100 ML IV SCH ×2 (11:48→12:57)
--- NOTE | 2019-01-06 12:00 | NUR ---
PATIENT IN INCONTINENT OF STOOL ZHANG CARE DONE AND NOTED THAT PATIENT HAS REDNESS ON BOTH GROIN AND SACRAL MD NOTIFIED WITH NEW ORDERS AND NOTED WILL CONTINUE TO TURN AND REPOSITION AND PROVIDE CARE.
[2019-01-06] MEDS: POTASSIUM CHLORIDE 20 MEQ in IV D5/ 0.9% NACL 1,000 ML IV PRN ×2 (12:10→23:41)
--- NOTE | 2019-01-06 12:12 | NUR ---
IV SITE ON THE LEFT FOREARM INFILTERATED RESTARTED TO HER RIGHT WRIST MAG LEVEL IS 1.6 WITH ORDER FOR MAG REPLACEMENT AND NOTED.
--- NOTE | 2019-01-06 14:00 | NUR ---
DIET ADVANCED TO SOFT DIET ORDERED APPETITE IS POOR PATIENT STATED UNABLE TO EAT MUCH NO NAUSEA OR VOMITING AT THIS TIME
--- NOTE | 2019-01-06 14:30 | NUR ---
DR STARLA BLACKWELL HERE TO SEE AND EXAMINE PATIENT WITH NO NEW ORDERS AT THIS TIME.
[2019-01-06] MEDS ORDERED: NEUTRA PHOS PACKET PO ONE (16:00)
--- NOTE | 2019-01-06 16:00 | NUR ---
PHOS LEVEL IS 2.3 WITH ORDER TO REPLACE WITH 2 PACKETS OF NEUTROPHOS AND NOTED
[2019-01-06 16:15] VITALS: BP 155/87
--- NOTE | 2019-01-06 17:50 | NUR ---
D/C PLANNING PER DR BLACKWELL REPORT ALSO PATHOLOGY SPECIALIST PATIENT IS AWAKE ALERT TO SELF WITH CONFUSSION AND DISORIENTATION PATIENT TENDS TO YELL OUT FOR HELP INSTEAD OF USING THE CALL LIGHTS DESPITE SHOWING HER NUMEROUS TIMES CHECKED ON HOURLY ROUNDS LANGUAGE BARRIER IS STILL A PROBLEM MADE COMFORTABLE WILL CONTINUE TO OBSERVE
--- NOTE | 2019-01-06 17:57 | NUR ---
REMAIN ON IVF ORDERED WITH NO S/S OF INFILTERATION ON SITE AT THIS TIME
[2019-01-06] MEDS: ATORVASTATIN 10 MG TABLET PO SCH (20:25)
[2019-01-06] MEDS: SENNOSIDES 1 TABLET PO SCH (20:25)
[2019-01-06] MEDS: DONEPEZIL 10 MG TABLET PO SCH (20:25)
[2019-01-06 20:55] VITALS: BP 169/87
[2019-01-07 06:00] VITALS: BP 152/82
[2019-01-07] MEDS: LEVOTHYROXINE SODIUM 50 MCG TABLET PO SCH (06:06)
--- NOTE | 2019-01-07 06:21 | NUR ---
END OF SHIFT REPORT Patient rested well in between care; pt has periods of anxiety, reassurance and assistance given; incontince care given; continue to monitor; continue plan of care.
[2019-01-07 07:13] LABS: CARBON DIOXIDE 28 mmol/L (21-32); CHLORIDE 105 mmol/L (98-107); CREATININE 0.8 mg/dL (0.6-1.3); GLUCOSE 136 mg/dL (74-106); MAGNESIUM 1.8 mg/dL (1.8-2.4); POTASSIUM 3.9 mmol/L (3.5-5.1); UREA NITROGEN, BLOOD 7 mg/dL (7-18)
[2019-01-07 07:29] LABS: BILIRUBIN,DIRECT 1.9 mg/dL (0.0-0.2); BILIRUBIN,TOTAL 2.4 mg/dL (0.2-1.0); TOTAL PROTEIN, SERUM 6.4 g/dL (6.4-8.2)
--- NOTE | 2019-01-07 07:40 | NUR ---
Patient resting comfortably in bed at this time. No signs of distress. Does not appear to be in pain at this time. Will continue to monitor throughout shift. Safety measures implemented - bed alarm on, call light within reach of patient. possible D/C today.
[2019-01-07] MEDS: MUPIROCIN 2% OINT 22 GM TUBE NS SCH (08:59)
[2019-01-07] MEDS: MULTIVIT, IRON, MIN NO. 8, FA TABLET PO SCH (09:00)
[2019-01-07] MEDS: CHOLECALCIFEROL 1,000 UNIT TABLET PO SCH (09:00)
[2019-01-07] MEDS: FAMOTIDINE 20 MG TABLET PO SCH (09:00)
[2019-01-07] MEDS: ACIDOPHILUS/BULGARICUS CHEW TAB PO SCH (09:00)
[2019-01-07] MEDS: POLYVINYL ALCOHOL OPHT DROPS 15 ML BOTTLE EACHEYE SCH ×2 (09:00→14:13)
[2019-01-07] MEDS: SERTRALINE HCL 50 MG TABLET PO SCH (09:00)
[2019-01-07] MEDS: Z GUARD REMEDY PASTE 57 GM TUBE TOP SCH (09:03)
[2019-01-07 11:02] VITALS: BP 142/72
[2019-01-07 15:31] VITALS: BP 124/82
--- NOTE | 2019-01-07 16:45 | NUR ---
Patient discharged at this time. Stable condition. Discharge packet completed and given to ambulance for [facility]. No signs of distress. No complaints of pain. IV-access discontinued. ID-band taken off. Report given to [facility]. Ambulance transporting patient to facility. Safety measures were implemented.
== END 2019-01-07 16:45 | DRG 444 ==
LOC: ER 00:31 → MEDSURG3 06:09
PROVIDERS: ADMIT Family Medicine; ATTEND Internal Medicine
DX: K80.50 Calculus of bile duct without cholangitis or cholecystitis without obstruction (principal); K85.10 Biliary acute pancreatitis without necrosis or infection; E43 Unspecified severe protein-calorie malnutrition; I50.32 Chronic diastolic (congestive) heart failure; D68.59 Other primary thrombophilia; I11.0 Hypertensive heart disease with heart failure; Z90.49 Acquired absence of other specified parts of digestive tract; G30.9 Alzheimer's disease, unspecified; F02.80 Dementia in other diseases classified elsewhere, unspecified severity, without behavioral disturbance, psychotic disturbance, mood disturbance, and anxiety; Z96.653 Presence of artificial knee joint, bilateral; Z86.73 Personal history of transient ischemic attack (TIA), and cerebral infarction without residual deficits; Z79.01 Long term (current) use of anticoagulants; Z79.899 Other long term (current) drug therapy; K56.41 Fecal impaction; J84.10 Pulmonary fibrosis, unspecified; I48.0 Paroxysmal atrial fibrillation; I25.10 Atherosclerotic heart disease of native coronary artery without angina pectoris; M85.80 Other specified disorders of bone density and structure, unspecified site; E66.9 Obesity, unspecified; Z68.30 Body mass index [BMI] 30.0-30.9, adult; I70.0 Atherosclerosis of aorta; F32.9 Major depressive disorder, single episode, unspecified; E78.5 Hyperlipidemia, unspecified; Z74.09 Other reduced mobility; F01.50 Vascular dementia, unspecified severity, without behavioral disturbance, psychotic disturbance, mood disturbance, and anxiety
CPT/HCPCS: 36415; 70030-TC; 71045; 74181; 83690; 83735; 84100; 85025; 85730; 93005; A4663; G0378; J1940; J2060; J2270; J2405; J3475; J3480; J7030; J7042